=== PATIENT | male | born 1975 | race Caucasian/White ===

== ENCOUNTER 2020-10-24 15:02 | Outpatient (REF) | payer OTHER, SELFPAY | END 2020-10-24 15:03 | disposition home or self-care (01) | LOC: HO.HMGCLDS 15:02 | PROVIDERS: PCP Family Medicine; Visit Provider Family Medicine | DX: Z13.89 Encounter for screening for other disorder (principal) ==

== ENCOUNTER 2020-10-25 12:24 | Outpatient (REF) | payer OTHER, SELFPAY ==
[2020-10-26 09:07] LABS: ~Hepatitis B Surface Antibody NONREACTIVE (Nonreactive)
== END 2020-10-25 12:25 | disposition home or self-care (01) ==
LOC: HO.HMGCLDS 12:24
PROVIDERS: PCP Family Medicine; Visit Provider Family Medicine
DX: Z01.84 Encounter for antibody response examination (principal)
CPT/HCPCS: 36415; 86706

== ENCOUNTER 2020-11-25 11:54 | Outpatient (REF) | payer OTHER, SELFPAY ==
[2020-11-28 03:37] LABS: HBS Num1 0.52 mIU/mL (0-7.99); ~Hepatitis B Surface Antibody NONREACTIVE (Nonreactive)
== END 2020-11-25 11:55 | disposition home or self-care (01) ==
LOC: HO.HMGCLDS 11:54
PROVIDERS: PCP Family Medicine; Visit Provider Family Medicine
DX: Z01.84 Encounter for antibody response examination (principal)
CPT/HCPCS: 36415; 86706

== ENCOUNTER 2020-12-21 13:50 | Outpatient (REF) | payer OTHER, SELFPAY ==
[2020-12-22 09:32] LABS: ~Hepatitis B Surface Antibody NONREACTIVE (Nonreactive)
== END 2020-12-21 13:51 | disposition home or self-care (01) ==
LOC: HO.HMGCLDS 13:50
PROVIDERS: PCP Family Medicine; Visit Provider Family Medicine
DX: Z01.84 Encounter for antibody response examination (principal)
CPT/HCPCS: 36415; 86706

== ENCOUNTER 2021-02-09 09:42 | Outpatient (REF) | payer OTHER, SELFPAY ==
[2021-02-09 12:13] LABS: HIV AB/AG Nonreactive (Nonreactive); HIV Num 1 0.06 S/CO (0.00-0.99)
[2021-02-09 12:16] LABS: HBsAGNum1 0.24 S/CO (0.00-0.99); Hepatitis B Surface Antigen Negative (Negative)
[2021-02-09 12:27] LABS: Anion Gap 13 (12-20); Blood Urea Nitrogen 10 mg/dL (9-16); Calcium 8.9 mg/dL (8.4-10.2); Carbon Dioxide 29 mmol/L (22-29); Chloride 103 mmol/L (96-108); Cholesterol 190 mg/dL; Estimated Glomerular Filt Rate > 60; Glucose Random 89 mg/dL (60-115); HDL Cholesterol 33 mg/dL; LDL Cholesterol Calculated 98 mg/dl; Potassium 4.5 mmol/L (3.3-5.1); Sodium 140 mmol/L (135-145); Triglycerides 298 mg/dL
[2021-02-09 13:25] LABS: CT PCR NOT DETECTED (Not Detect.); NG PCR NOT DETECTED (Not Detect.)
[2021-02-10 03:58] LABS: Syphilis Screen Nonreactive (Nonreactive)
[2021-02-11 20:21] LABS: TS Negative Control Passed; TS Panel A 0; TS Panel B 0; TS Positive Control Passed; TSpotTB Negative (SeeBelow)
== END 2021-02-09 09:43 | disposition home or self-care (01) ==
LOC: HO.HMGCLDS 09:42
PROVIDERS: PCP Family Medicine; Visit Provider Family Medicine
DX: Z00.00 Encounter for general adult medical examination without abnormal findings (principal); Z11.1 Encounter for screening for respiratory tuberculosis; Z11.4 Encounter for screening for human immunodeficiency virus [HIV]; Z11.3 Encounter for screening for infections with a predominantly sexual mode of transmission
CPT/HCPCS: 80048; 80061; 86481; 86780; 87340; 87389; 87491; 87591

== ENCOUNTER 2021-06-27 12:53 | Outpatient (REF) | payer OTHER, SELFPAY ==
[2021-06-28 08:19] LABS: HBS Num1 0.45 mIU/mL (0-7.99); ~Hepatitis B Surface Antibody NONREACTIVE (Nonreactive)
== END 2021-06-27 12:54 | disposition home or self-care (01) ==
LOC: HO.HMGCLDS 12:53
PROVIDERS: PCP Family Medicine; Visit Provider Family Medicine
DX: Z92.29 Personal history of other drug therapy (principal)
CPT/HCPCS: 36415; 86706

== ENCOUNTER 2023-02-01 11:09 | Outpatient (REF) | payer OTHER, SELFPAY ==
[2023-02-01 14:17] LABS: Anion Gap 12 (12-20); Blood Urea Nitrogen 11 mg/dL (9-16); Carbon Dioxide 29 mmol/L (22-29); Chloride 103 mmol/L (96-108); Cholesterol 179 mg/dL; Estimated Glomerular Filt Rate > 60; Glucose Random 100 mg/dL (60-115); HDL Cholesterol 37 mg/dL; LDL Cholesterol Calculated 109 mg/dl; Potassium 4.1 mmol/L (3.3-5.1); Sodium 140 mmol/L (135-145); Triglycerides 165 mg/dL
[2023-02-01 14:39] LABS: Syphilis Screen Nonreactive (Nonreactive)
[2023-02-01 15:42] LABS: CT PCR NOT DETECTED (Not Detect.); NG PCR NOT DETECTED (Not Detect.)
[2023-02-04 08:53] LABS: HBsAGNum1 0.36 S/CO (0.00-0.99); HIV AB/AG Nonreactive (Nonreactive); HIV Num 1 0.08 S/CO (0.00-0.99); Hepatitis B Surface Antigen Negative (Negative); ~HepC Num1 0.09 S/CO (0.00-0.79); ~Hepatitis C Antibody Nonreactive (Nonreactive)
== END 2023-02-01 11:10 | disposition home or self-care (01) ==
LOC: HO.HMGCLDS 11:09
PROVIDERS: PCP Family Medicine; Visit Provider Family Medicine
DX: Z11.4 Encounter for screening for human immunodeficiency virus [HIV] (principal); Z20.2 Contact with and (suspected) exposure to infections with a predominantly sexual mode of transmission; E66.01 Morbid (severe) obesity due to excess calories; Z68.36 Body mass index [BMI] 36.0-36.9, adult
CPT/HCPCS: 0353U; 80048; 80061; 86780; 86803; 87340; 87389

== ENCOUNTER 2024-07-17 14:40 | Outpatient (REF) | payer OTHER, SELFPAY ==
[2024-07-17 16:58] LABS: Alanine Aminotransferase 32 U/L (0-40); Albumin Level 4.4 g/dL (3.5-5.0); Alkaline Phosphatase 60 U/L (39-117); Anion Gap 10 (12-20); Aspartate Amino Transferase 23 U/L (5-37); Bilirubin Total 0.9 mg/dL (0.0-1.0); Blood Urea Nitrogen 12 mg/dL (9-16); Calcium 9.6 mg/dL (8.4-10.2); Carbon Dioxide 28 mmol/L (22-29); Chloride 104 mmol/L (96-108); Cholesterol 168 mg/dL (<200); Estimated Glomerular Filt Rate > 60; Glucose Random 88 mg/dL (60-115); HDL Cholesterol 34 mg/dL (>40); LDL Cholesterol Calculated 109 mg/dL (<100); Potassium 3.4 mmol/L (3.3-5.1); Sodium 139 mmol/L (135-145); Total Protein 7.1 g/dL (6.5-8.0); Triglycerides 128 mg/dL (<150)
[2024-07-17 17:07] LABS: Vitamin D 25-OH Total 70.6 ng/mL (>30)
[2024-07-17 18:35] LABS: CT PCR NOT DETECTED (Not Detect.); NG PCR NOT DETECTED (Not Detect.)
[2024-07-18 04:02] LABS: Syphilis Screen Nonreactive (Nonreactive)
[2024-07-18 04:29] LABS: HBsAGNum1 0.77 S/CO (0.00-0.99); HIV AB/AG Nonreactive (Nonreactive); HIV Num 1 0.05 S/CO (0.00-0.99); Hepatitis B Surface Antigen Negative (Negative); ~HepC Num1 0.06 S/CO (0.00-0.79); ~Hepatitis C Antibody Nonreactive (Nonreactive)
== END 2024-07-17 14:41 | disposition home or self-care (01) ==
LOC: HO.HMGCLDS 14:40
PROVIDERS: PCP Family Medicine; Visit Provider Family Medicine
DX: Z00.00 Encounter for general adult medical examination without abnormal findings (principal); E55.9 Vitamin D deficiency, unspecified; Z11.4 Encounter for screening for human immunodeficiency virus [HIV]
CPT/HCPCS: 80053; 80061; 82306; 86780; 86803; 87340; 87389; 87491; 87591

== ENCOUNTER 2025-06-05 09:41 | Outpatient (REF) | payer OTHER, SELFPAY ==
--- OUTSIDE RECORDS SUMMARY | 2025-06-05 09:43 | XMS_ITS | Clinical Summary ---
Author Organization [facility] Address [address] [place] [phone] Phone Care Team Providers Care Inventory Control Coordinator Name Role Phone Radha Call MD, MPH Primary Care Provid er Allergies Active Allergy Reactions Criticality Noted Date Comments Nsaids (Non-Steroidal Anti-I nflammatory Drug) 11/06/2019 Medications sertraline (ZOLOFT) 25 MG tablet Take 1 tablet (25 mg total) by mouth daily. 30 tablet 5 06/19/2024 Active mirtazapine (REMERON) 7.5 MG tabletIndicatio ns:Primary insomnia TAKE ONE (1) TABLET BY MOUTH EVERY NIGHT AT BEDTIME 90 tablet 08/28/2024 Active Multivits/Iron Fum/FA/D3/Lycop (MULTI FOR HIM ORAL) as directed Orally Active cyanocobalamin (VITAMIN B-12) 1,000 mcg/mL injection INJECT 1 ML (1 000 MCG TOTAL) INTO THE MUSCLE EVERY 7 DAYS. 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 He understands the risks associated with this and potential work exposures and is willing to take them. This is up to him Elevated cholesterol 11/28/2019 Assessment & Plan (11/28/2019 6:20 PM EST): Triglycerides and LDL above goal. Reviewed ways for improving cholesterol. Pt is going to restart fish oil. Recheck in 6 months. Obesity due to excess calories without serious c omorbidity 11/09/2019 Assessment & Plan (09/22/2022 6:23 AM EST): Has done well with weight loss. Cont regular exercise Primary insomnia 11/06/2019 Assessment & Plan (09/22/2022 6:24 AM EST): Discussed THC unknowns. Assessment & Plan (11/28/2019 6:20 PM EST): Currently doing well with remeron. Ok to try 15mg dose if needed. Assessment & Plan (11/09/2019 10:23 AM EST): Discussed options of doxalamine vs mirtazepine. Adi prefers to start with mirtazepine. Discussed dosing options and sedation effect with dosing. Cough variant asthma 11/06/2019 Overview (09/22/2022): had hospitalization years ago and acquired diagnosis, does not regularly need inhaler Assessment & Plan (09/22/2022 6:17 AM EST): Discussed pneumonia vaccine recommendation. He is amenable Assessment & Plan (11/09/2019 10:23 AM EST): Controlled Encounters Date Type Department Care Team Description 05/24/2025 Refill [facility] [address] [place] [address] Radha Call MD, MPH Medication Refill from Last 3 Months Immunizations Immunization Administration Dates Next Due COVID-19 (Pre-07/29) Moderna Vaccine, mRNA, PF 11/15/2020,10/21/2020 Hepatitis B Adult 06/08/2021, 1,11/11/2020,09/13,04/14/2020,03/17/2020,08/20/2019 ,07/23/2019 Influenza Quadrivalent MDCK Preservative Free IM 07/07/2020 Influenza Quadrivalent Prese rvative Free IM 07/23/2019,07/18/2018,07/03/2013 Influenza Quadrivalent w/ Pr eservative IM 07/12/2017 MMR 08/20/2019,07/23/2019 Pneumococcal conjugate PCV20 09/21/2022 Pneumococcal polysaccharide PPSV23 08/07/2012 Tdap 03/17/2020,06/08/2013 Family History Medical History Relation Comments Glaucoma Mother Heart disease Mother unknown cause Hypertension Mother Pulmonary embolism Mother related to im mobility Breast cancer Neg Hx Colon cancer Neg Hx Pancreatic cancer Neg Hx Prostate cancer Neg Hx Stroke Neg Hx Relation Status Comments Brother Alive half sibling- di fferent father Mother (Age 63) Sister Alive half sibling- di fferent father Social History Tobacco Use Types Packs/Day Years Used Date Smoking Tobacco: Never Smokeless Tobacco: Never Alcohol Use Standard Drinks/Week Comments Yes 0 (1 standard drink = 0.6 oz pur e alcohol) Child or Family Care Answer Date Record ed Do you have problems with on e of the following making it difficult for you to work, study, or receive health care? No 06/19/2024 Education Answer Date Recorded Are you interested in help w ith more adult education (for example, completing high school, GED, job training, learning the [place] language, technical skills, or developing parenting skills)? No 06/19/2024 Are you concerned about learning? Not on file 06/19/2024 No 06/19/2024 Yes 06/19/2024 Food Answer Date Recorded Within the past 6 months we worried whether our food would run out before we got money to buy more. Never True 06/19/2024 Within the past 6 months the food we bought just didn't last and we didn't have enough money to get more. Never True Residential Stability Answer Date Recor ded What is your housing situation today? I have efren sing 06/19/2024 How many times have you move d in the past 12 months? Zero (I did not move) 06/19/2024 Paying for Meds Answer Date Recorded Do you have trouble paying for medicines? No 06/19/2024 Paying Utility Bills Answer Date Record ed Do you have trouble paying your heating or elect ricity bill? No 06/19/2024 Transportation Answer Date Recorded Has the lack of transportati on kept you from medical appointments or from getting medications? No 06/19/2024 Digital Access Answer Date Recorded No 06/19/2024 Yes 06/19/2024 Do you have reliable internet access at home? Ye s 06/19/2024 Do you have a device (e.g., phone, tablet, computer) with a working camera? Yes 06/19/2024 Intimate Partner Violence Answer Date R ecorded Denied Basic Needs Not on file 06/19/2024 In the past 12 months have y ou been in a relationship with a person who hurts, threatens, or tries to control you? No 06/19/2024 Worried food would run out Not on file 06/19 In the past 12 months have y ou been in a relationship with a person who hurts, threatens, or tries to control you? No 06/19/2024 Sex and Gender Information Value Date Recorded Sex Assigned at Male 11/06/2019 1:41 PM EST Legal Sex Male 3:59 PM EST Gender Identity Male 11/06/2019 1:41 PM EST Sexual Orientation Straight 11/06/2019 1: 41 PM EST Last Filed Vital Signs Vital Sign Reading Time Taken Comments Blood Pressure 128/88 06/19/2024 10:48 AM EDT Pulse 87 06/19/2024 10:48 AM EDT Temperature 36.6 C (97.9 F) 09/21/2022 1:05 PM EST Respiratory Rate - - Oxygen Saturation 99% 06/19/2024 10:48 AM EDT Inhaled Oxygen Concentration - - Weight 127.9 kg (282 lb) 06/19/2024 10:48 AM EDT Height 179.1 cm (5' 10.5 ) 06/19/2024 10:48 AM E DT Body Mass Index 39.89 06/19/2024 10:48 AM EDT Plan of Treatment Health Maintenance Due Date Last Done Comments COLOGUARD 2020 COLONOSCOPY 2020 COLORECTAL CANCER SCREENING 2020 FIT TEST 2020 FOBT 2020 SIGMOIDOSCOPY 2020 VIRTUAL COLONOSCOPY 2020 COVID-19 VACCINE ( season) 2024 11/15/2020, 10/21/2020 REPEAT PHQ 07/19/2024 06/19/2024, 06/19/2024 ZOSTER VACCINES (1 of 2) 2025 INFLUENZA VACCINE (#1) 2025 , 07/23/2019, 07/18/2018, Additional history exists DEPRESSION SCREENING 06/19/2025 06/19/2024, 06/19/20 24 SCREENING FOR DIABETES 07/17/2027 07/17/2024 LIPID PANEL 07/17/2029 07/17/2024, 07/07, 07/17/2024 Adult Td,Tdap Booster 03/17/2030 03/17/2020, 013 PNEUMOCOCCAL VACCINES (50+ years) Completed 09/21/2022, 08/07/2012 HEPATITIS C SCREENING Completed 07/17/2024 , 07/17/2024, 09/21/2022, Additional history exists HIV ONE-TIME SCREENING (18-65 YEARS) Completed 07/17/2024 SMOKING STATUS SCREENING (Once After 26 Yrs) Completed 08/26/2024 HEPATITIS A VACCINES Aged Out No long er eligible based on patient's age to complete this topic HIB VACCINES Aged Out No longer eligi ble based on patient's age to complete this topic MENINGOCOCCAL VACCINES (ACWY) Aged Out No longer eligible based on patient's age to complete this topic MENINGOCOCCAL VACCINES (B) Aged Out N o longer eligible based on patient's age to complete this topic Medical Devices Not on file Procedures Procedure Name Priority Date/Time Associated Diagnosis Comments HEPATITIS C ANTIBODY, QUALITATIVE Routine 07/17/2024 8:56 AM EDT Annual physical exam OUTSIDE HDL Routine 07/17/2024 OUTSIDE GLUCOSE FASTING Routine 07/17/2024 OUTSIDE HIV Routine 07/17/2024 from Last 3 Months or Most Recently Relevant to Health Maintenance Results * Hepatitis C antibody, qualitative (07/17/2024 8:56 AM EDT) Blood Radha Call MD, MPH LAB BLOOD ORDERABLES Final Result EXTERNAL NON-INTERFACED REF LAB * Outside Glucose,Fasting (07/17/2024) Glucose, fasting - External 88 65 - 99 mg/dL Historical Provider MD LAB BLOOD ORDERABLES Elvira l Result * OUTSIDE HIV TEST (07/17/2024) HIV - External Neg Historical Provider MD LAB BLOOD ORDERABLES Elvira l Result * (ABNORMAL) Outside HDL (07/17/2024) HDL - External 34(A) 40 - 80 mg/dL Historical Provider MD LAB BLOOD ORDERABLES Elvira l Result from Last 3 Months or Most Recently Relevant to Health Maintenance Insurance [place] [id number] [employer] Care Teams Inventory Control Coordinator Relationship Specialty Start Date End Date Radha Call MD, MPH [address] [place] [phone] [email or web address] PCP - General Family Medicine 10/30/19 Additional Source Comments The information contained in this document represents components of the legal health record. It is not the complete legal health record.[facility]
--- OUTSIDE RECORDS SUMMARY | 2025-06-05 09:44 | XMS_ITS | Encounter Summary ---
Author Organization [facility] Address [address] [place] [address] Phone Care Team Providers Care Restaurant Busser Name Role Phone Radha Call MD, MPH Primary Care Provid er Reason for Visit * Reason Comments Medication Refill Encounter Details Date Type Department Care Team (Late st Contact Info) Description 05/24/2025 Refill [facility] [address] [place] [address] Radha Call MD, MPH [address] [place], [place] [id number] [email or web address] Medication Refill Social History Tobacco Use Types Packs/Day Years [...] high school, GED, job training, learning the [place]og[place] language, technical skills, or developing parenting skills)? [...] your housing situation today? I have efren hinojosa 06/19/2024 How many times have you move [...] Orientation Straight 11/06/2019 1: 41 PM EST documented as of this encounter Progress Notes * Shelbie Fair RN - 05/24/2025 11:01 AM EDT At least one Rx below has no protocol and needs review. Rx Care Gap Status - Instructions for Clinical Staff (prescriber discretion applies): > Mismatch review guide > No future appt: Please schedule if appropriate. Visit Info Last visit: 08/26/2024 Radha Call MD, MPH - Primary Care [facility] PRIMARY OXBOW > Requested f/u: Not specified Upcoming visit: None ACTIONS TAKEN BY Shelbie Fair RN - Visit needed - Scheduled; sent msg to FD; and/or reminded pt. Rx(s) without protocol Renewal is at prescriber discretion. - cyanocobalamin (vitamin B-12) TO FD for appt scheduling documented in this encounter Plan of Treatment Not on file documented as of this encounter Visit Diagnoses Not on filedocumented in this encounter Additional Health Concerns Assessment Noted Time PHQ-9 Depression Total Score: 14 024 10:59 AM EDT PHQ-2 Depression Total Score: 3 06/19/20 24 10:59 AM EDT documented as of this encounter Care Teams Restaurant Busser Relationship Specialty Start Date End Date Radha Call MD, MPH [address] [place], [place] [phone] [email or web address] PCP - General Family Medicine 10/30/19 documented as of this encounter Additional Source Comments The information contained in this document represents components of the legal health record. It is not the complete legal health record.[facility]
[2025-06-05 10:06] LABS: MANUAL DIFF FLAG NO
[2025-06-05 11:02] LABS: Hematocrit 50.9 % (42.0-52.0); Hemoglobin 16.9 g/dl (14.0-18.0); Imm Gran Abs Auto 0.01 X10*3/uL (0.00-0.03); Imm Gran Pct Auto 0.2 % (0.0-0.4); Lymphocytes Absolute Auto 1.5 X10*3/uL (1.2-4.9); Mean Corpuscular HGB Conc 33.2 g/dl (31.0-36.0); Mean Corpuscular Hemoglobin 29.0 pg (27.0-33.0); Mean Corpuscular Volume 87.3 fL (80.0-98.0); NRBC Abs Auto 0.000 X10*3/uL (0.0-0.012); NRBC Pct Auto 0.0 /100WBC (0.0-0.2); Platelet Count 257 X10*3/uL (160-400); Red Blood Count 5.83 X10*6/uL (4.60-5.80); White Blood Count 6.5 X10*3/uL (4.8-10.8)
[2025-06-05 11:15] LABS: Hemoglobin A1C 135.4018 umol/L; Total Hemoglobin (HGBA1C) 4419.3808 umol/L
[2025-06-05 11:31] LABS: INTERNATIONAL NORM RATIO 0.9 (0.9-1.1); Partial Thromboplastin Time 35.8 SEC (26.7-34.1); Prothrombin Time 10.8 SEC (10.9-12.4)
[2025-06-05 11:32] LABS: Appearance Urine Clear; Glucose Urine UA Negative (Negative); PH 5.5 (5.0-9.0); Specific Gravity - Urine 1.020 (1.005-1.025); UMIC TRIGGER UACC YES
[2025-06-05 11:41] LABS: Alanine Aminotransferase 44 U/L (0-40); Albumin Level 4.6 g/dL (3.5-5.0); Alkaline Phosphatase 70 U/L (39-117); Anion Gap 13 (12-20); Aspartate Amino Transferase 31 U/L (5-37); Blood Urea Nitrogen 24 mg/dL (9-16); Calcium 9.2 mg/dL (8.4-10.2); Carbon Dioxide 29 mmol/L (22-29); Chloride 104 mmol/L (96-108); Cholesterol 104 mg/dL (<200); Estimated Glomerular Filt Rate > 60; HDL Cholesterol 40 mg/dL (>40); Potassium 4.4 mmol/L (3.3-5.1); Sodium 142 mmol/L (135-145); Total Protein 7.1 g/dL (6.5-8.0); Triglycerides 55 mg/dL (<150)
[2025-06-05 11:53] LABS: HIV Num 1 0.07 S/CO (0.00-0.99)
[2025-06-05 11:54] LABS: Syphilis Screen Nonreactive (Nonreactive)
[2025-06-05 11:55] LABS: Free T4 (Free Thyroxine) 1.03 ng/dL (0.71-1.85); Thyroid Stimulating Hormone 1.37 uIU/mL (0.32-4.0)
[2025-06-05 15:10] LABS: CT PCR Urine NOT DETECTED (Not Detect.); NG PCR Urine NOT DETECTED (Not Detect.)
== END 2025-06-05 09:42 | disposition home or self-care (01) ==
LOC: HO.LAB 09:41
DX: Z00.00 Encounter for general adult medical examination without abnormal findings (principal); E55.9 Vitamin D deficiency, unspecified; Z11.3 Encounter for screening for infections with a predominantly sexual mode of transmission; Z11.8 Encounter for screening for other infectious and parasitic diseases; Z13.29 Encounter for screening for other suspected endocrine disorder; Z13.220 Encounter for screening for lipoid disorders; Z13.1 Encounter for screening for diabetes mellitus; Z79.1 Long term (current) use of non-steroidal anti-inflammatories (NSAID)
CPT/HCPCS: 36415; 80053; 80061; 81001; 82306; 83036; 84436; 84439; 84443; 84480; 84481; 85025; 85610; 85730; 86695; 86696; 86780; 87389; 87491; 87591

== ENCOUNTER 2025-06-08 09:44 | Outpatient (REF) | payer OTHER, SELFPAY ==
--- OUTSIDE RECORDS SUMMARY | 2024-09-02 04:45 | XMS_ITS ---
Author Organization [facility] [address] Address [address] [facility] [place] [address] Care Team Providers Care Credit Verifier Name Role Phone KATHLEEN CANNON Unavailable [phone] BETITO FRAZIER Unavailable [phone] REASON FOR VISIT 5mg Encounters Encounter Location Date Provider Diagnosis [facility] [address] [place] [address] 09/02/2024 BETITO FRAZIER Plan Of Treatment Next Appt Details Provider Name:KATHLEEN CANNON, 07/16/2025 10:45:00 AM, [address], [place], [address], Progress Notes * Adi MOTADOB:[birth year] (50 yo M)Acc No.[id number]:09/02/2024 Patient: Adi BROOKS Provider: Laurel Frazier MD :1975 A ge:49 Y S ex:Male Date:09/02/2024 Address:[address] [id number] Subjective: * Chief Complaints: * 1 . 5mg. * Medical History: Objective: * Vitals: Assessment: Plan: * Treatment: * Images: Billing Information: * Visit Code: * Procedure Codes: * Electronic signature of KATI FRAZIER MD on 06/08/2025 at 10:51 AM EDT Sign off status: Pending * Provider: Laurel Frazier MD Date: 11/02/2023 Generated for Elina Nayakg/Annieitting on: 0 06/08/2025 10:51 AM EDT
--- OUTSIDE RECORDS SUMMARY | 2024-09-09 04:15 | XMS_ITS ---
Author Organization [facility] [address] Address [address] [facility] [place] [address] Care Team Providers Care Counter Help Name Role Phone KATHLEEN CANNON Unavailable [phone] BETITO FRAZIER Unavailable [phone] REASON FOR VISIT 5mg Encounters Encounter Location Date Provider Diagnosis [facility] [address] [place] [address] 09/09/2024 BETITO FRAZIER Plan Of Treatment Next Appt Details Provider Name:KATHLEEN CANNON, 07/16/2025 10:45:00 AM, [address], [place], [address], Progress Notes * Adi MOTADOB:[birth year] (50 yo M)Acc No.[id number]:09/09/2024 Patient: Adi BROOKS Provider: Laurel Frazier MD :1975 A ge:49 Y S ex:Male Date:09/09/2024 Address:[address] [id number] Subjective: * Chief Complaints: * 1 . 5mg. * Medical History: Objective: * Vitals: Assessment: Plan: * Treatment: * Images: Billing Information: * Visit Code: * Procedure Codes: * Electronic signature of KATI FRAZIER MD on 06/08/2025 at 10:51 AM EDT Sign off status: Pending * Provider: Laurel Frazier MD Date: 11/10/2023 Generated for Elina Nayakg/Annieitting on: 0 06/08/2025 10:51 AM EDT
--- OUTSIDE RECORDS SUMMARY | 2024-09-15 09:30 | XMS_ITS ---
Author Organization [facility] [address] Address [address] [facility] [place] [address] Care Team Providers Care Firearms Expert Name Role Phone KATHLEEN CANNON Unavailable [phone] Encounters Encounter Location Date Provider Diagnosis [facility] [address] [place] [address] 09/15/2024 KATHLEEN CANNON Plan Of Treatment Next Appt Details Provider Name:KATHLEEN CANNON, 07/16/2025 10:45:00 AM, [address], [place], [address], Progress Notes * Adi MOTADOB:[birth year] (50 yo M)Acc No.[id number]:09/15/2024 Patient: Adi BROOKS Provider: Chi CANNON PA-C :1975 A ge:49 Y S ex:Male Date:09/15/2024 Address:[address] [place] Subjective: * Chief Complaints: * * Medical History: Objective: * Vitals: Assessment: Plan: * Treatment: * Images: Billing Information: * Visit Code: * Procedure Codes: * Electronic signature of ANNA MARIE CANNON PA-C [id number] on 06/08/2025 at 10:50 AM EDT Sign off status: Pending * Provider: Chi CANNON PA-C Date: 1 11/16/2023 Generated for Elina ac/Faxing/eTransmitting on: 0 06/08/2025 10:50 AM EDT
--- OUTSIDE RECORDS SUMMARY | 2025-06-04 06:45 | XMS_ITS ---
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 Teacher Name Role Phone KATHLEEN CANNON Unavailable [phone] Allergies Allergen (clinical drug ingredient) Drug/Non Drug Allergy documented on EMR Reaction Allergy Type Onset Date Status Non-steroidal anti-inflammatory agent (FN) NSAIDs stomach upset Drug Allergy Active REASON FOR VISIT pt is here for inpatient services rn visit no concerns Medications Medication SIG (Take, Route, Fr equency, Duration) Notes Start Date End Date Status Multi For Him - as directed Orally Active Vitamin D3 Active Mirtazapine 15 MG 1 tablet at bedtime Orally Once a day Active Social History Tobacco Use: Social History Observation Description Date Details (start date - stop date) Never Smoker NA - NA Tobacco Use/Smoking Question Answer Notes Are you a nonsmoker Section Notes: Ocassional alcohol consumption Rare marijuana edible use for sleep Problems Problem Type SNOMED Code ICD Code Onset Dates Problem Status W/U Status Risk Notes Problem Essential hypertension (14680397) Essential hypertension (I10) Active confirmed Problem Chronic insomnia (532679037) Chronic insomnia (F51.04) Active confirmed Problem Abnormal blood pressure (49480068) Encounter for examination of blood pressure with abnormal findings (Z01.31) Active confirmed Vital Signs Blood pressure systolic 140 mm Hg 06/04/20 25 Blood pressure diastolic 88 mm Hg 025 Heart Rate 87 /min 06/04/2025 Height 70 in 06/04/2025 Weight 186.6 lbs 06/04/2025 BMI 26.77 kg/m2 06/04/2025 Oximetry 98 % 06/04/2025 Encounters Encounter Location Date Provider Diagnosis [facility] [address] [place] [address] 06/04/2025 KATHLEEN CANNON BMI 26.0-26.9,adult Z68.26 ; Essential hypertension I10 ; Seasonal allergies J30.2 ; History of pneumonia Z87.01 ; Chronic insomnia F51.04 ; Risk for sexually transmitted disease Z72.51 and Encounter for examination of blood pressure with abnormal findings Z01.31 Assessments Encounter Date Diagnosis (ICD Code) Assessment Notes Treatment Notes Treatment Clinical Notes Section Notes 06/04/2025 BMI 26.0-26.9,adult (ICD-10 - Z68.26) Adi is a pleasant 50-year-old male present today to establish care as a new patient. # Recommend calling last primary care to transfer records. # Wt: 186.6 lbs, BMI: 26.77 recently seen in office for weight management. Previously on Zepbound in office however discontinued weight management visits as he had them begun purchasing Zepbound online. States he has made drastic lifestyle modifications in his life including diet and exercise to have such successful weight loss. Reached Zepbound 10 mg until hitting goal weight. Has since discontinued as he has upcoming cosmetic abdominoplasty that will be performed in [place]. # Hypertension: Blood pressure elevated in office today 140/80. Patient monitors blood pressure at home and able to review log which reveals systolic blood pressure readings of 110-120s and diastolics 70-80s. Will continue to monitor. #Seasonal allergies: Well-controlled. Continue avon-uko-bxhvjpk antihistamines as needed. #History of pneumonia: Over 10+ years ago. #Chronic insomnia: Reports family history of insomnia. This is chronic for himself as well. Currently on mirtazapine 15 mg p.o. once daily. Previously has tried a variety of other sleep aids including Ambien and zopiclone. Has also been prescribed lorazepam in the past. States that zopiclone works the best for sleep taking at a low dose. Will further discuss at following visit. Will consider sleep study. # Sexual activity: Continue annual STD testing and encouraged safe sex practice. If symptoms develop, will consider sooner screening. # Preop visit scheduled for 06/08 for upcoming abdominoplasty in [place], [place]. Will order bloodwork today required for surgery as well as perform an EKG at preop. Patient will return with needed paperwork for preop clearance. # 4 weeks for CPE. All questions answered to patients satisfaction. Patient verbalized understanding of diagnosis and treatments explained. To call sooner prior to next visit it any questions/concerns arise. Case discussed with collaborating physician Dr. Frazier who reviewed the assessment and plan. Chart, medications, labs, vital signs reviewed. Dictation was accomplished with the use of [employer] voice recognition software, prone to medical misidentifications and grammatical errors. This is unintentional and the practitioner does try to identify and correct these, but some could still be present. Please do not hesitate to contact practitioner for clarification. 06/04/2025 Essential hypertension (ICD-10 - I10) Adi is a pleasant 50-year-old male present today to establish care as a new patient. # Recommend calling last primary care to transfer records. # Wt: 186.6 lbs, BMI: 26.77 recently seen in office for weight management. Previously on Zepbound in office however discontinued weight management visits as he had them begun purchasing Zepbound online. States he has made drastic lifestyle modifications in his life including diet and exercise to have such successful weight loss. Reached Zepbound 10 mg until hitting goal weight. Has since discontinued as he has upcoming cosmetic abdominoplasty that will be performed in [place]. # Hypertension: Blood pressure elevated in office today 140/80. Patient monitors blood pressure at home and able to review log which reveals systolic blood pressure readings of 110-120s and diastolics 70-80s. Will continue to monitor. #Seasonal allergies: Well-controlled. Continue hmsh-jje-yasutky antihistamines as needed. #History of pneumonia: Over 10+ years ago. #Chronic insomnia: Reports family history of insomnia. This is chronic for himself as well. Currently on mirtazapine 15 mg p.o. once daily. Previously has tried a variety of other sleep aids including Ambien and zopiclone. Has also been prescribed lorazepam in the past. States that zopiclone works the best for sleep taking at a low dose. Will further discuss at following visit. Will consider sleep study. # Sexual activity: Continue annual STD testing and encouraged safe sex practice. If symptoms develop, will consider sooner screening. # Preop visit scheduled for 06/08 for upcoming abdominoplasty in [place], [place]. Will order bloodwork today required for surgery as well as perform an EKG at preop. Patient will return with needed paperwork for preop clearance. # 4 weeks for CPE. All questions answered to patients satisfaction. Patient verbalized understanding of diagnosis and treatments explained. To call sooner prior to next visit it any questions/concerns arise. Case discussed with collaborating physician Dr. Frazier who reviewed the assessment and plan. Chart, medications, labs, vital signs reviewed. Dictation was accomplished with the use of [employer] voice recognition software, prone to medical misidentifications and grammatical errors. This is unintentional and the practitioner does try to identify and correct these, but some could still be present. Please do not hesitate to contact practitioner for clarification. 06/04/2025 Seasonal allergies (ICD-10 - J30.2) Adi is a pleasant 50-year-old male present today to establish care as a new patient. # Recommend calling last primary care to transfer records. # Wt: 186.6 lbs, BMI: 26.77 recently seen in office for weight management. Previously on Zepbound in office however discontinued weight management visits as he had them begun purchasing Zepbound online. States he has made drastic lifestyle modifications in his life including diet and exercise to have such successful weight loss. Reached Zepbound 10 mg until hitting goal weight. Has since discontinued as he has upcoming cosmetic abdominoplasty that will be performed in [place]. # Hypertension: Blood pressure elevated in office today 140/80. Patient monitors blood pressure at home and able to review log which reveals systolic blood pressure readings of 110-120s and diastolics 70-80s. Will continue to monitor. #Seasonal allergies: Well-controlled. Continue ovgo-bdf-bretgny antihistamines as needed. #History of pneumonia: Over 10+ years ago. #Chronic insomnia: Reports family history of insomnia. This is chronic for himself as well. Currently on mirtazapine 15 mg p.o. once daily. Previously has tried a variety of other sleep aids including Ambien and zopiclone. Has also been prescribed lorazepam in the past. States that zopiclone works the best for sleep taking at a low dose. Will further discuss at following visit. Will consider sleep study. # Sexual activity: Continue annual STD testing and encouraged safe sex practice. If symptoms develop, will consider sooner screening. # Preop visit scheduled for 06/08 for upcoming abdominoplasty in [place], [place]. Will order bloodwork today required for surgery as well as perform an EKG at preop. Patient will return with needed paperwork for preop clearance. # 4 weeks for CPE. All questions answered to patients satisfaction. Patient verbalized understanding of diagnosis and treatments explained. To call sooner prior to next visit it any questions/concerns arise. Case discussed with collaborating physician Dr. Frazier who reviewed the assessment and plan. Chart, medications, labs, vital signs reviewed. Dictation was accomplished with the use of [employer] voice recognition software, prone to medical misidentifications and grammatical errors. This is unintentional and the practitioner does try to identify and correct these, but some could still be present. Please do not hesitate to contact practitioner for clarification. 06/04/2025 History of pneumonia (ICD-10 - Z87.01) Adi is a pleasant 50-year-old male present today to establish care as a new patient. # Recommend calling last primary care to transfer records. # Wt: 186.6 lbs, BMI: 26.77 recently seen in office for weight management. Previously on Zepbound in office however discontinued weight management visits as he had them begun purchasing Zepbound online. States he has made drastic lifestyle modifications in his life including diet and exercise to have such successful weight loss. Reached Zepbound 10 mg until hitting goal weight. Has since discontinued as he has upcoming cosmetic abdominoplasty that will be performed in [place]. # Hypertension: Blood pressure elevated in office today 140/80. Patient monitors blood pressure at home and able to review log which reveals systolic blood pressure readings of 110-120s and diastolics 70-80s. Will continue to monitor. #Seasonal allergies: Well-controlled. Continue ttpm-rhm-jkthgsg antihistamines as needed. #History of pneumonia: Over 10+ years ago. #Chronic insomnia: Reports family history of insomnia. This is chronic for himself as well. Currently on mirtazapine 15 mg p.o. once daily. Previously has tried a variety of other sleep aids including Ambien and zopiclone. Has also been prescribed lorazepam in the past. States that zopiclone works the best for sleep taking at a low dose. Will further discuss at following visit. Will consider sleep study. # Sexual activity: Continue annual STD testing and encouraged safe sex practice. If symptoms develop, will consider sooner screening. # Preop visit scheduled for 06/08 for upcoming abdominoplasty in [place], [place]. Will order bloodwork today required for surgery as well as perform an EKG at preop. Patient will return with needed paperwork for preop clearance. # 4 weeks for CPE. All questions answered to patients satisfaction. Patient verbalized understanding of diagnosis and treatments explained. To call sooner prior to next visit it any questions/concerns arise. Case discussed with collaborating physician Dr. Frazier who reviewed the assessment and plan. Chart, medications, labs, vital signs reviewed. Dictation was accomplished with the use of [employer] voice recognition software, prone to medical misidentifications and grammatical errors. This is unintentional and the practitioner does try to identify and correct these, but some could still be present. Please do not hesitate to contact practitioner for clarification. 06/04/2025 Chronic insomnia (ICD-10 - F51.04) Adi is a pleasant 50-year-old male present today to establish care as a new patient. # Recommend calling last primary care to transfer records. # Wt: 186.6 lbs, BMI: 26.77 recently seen in office for weight management. Previously on Zepbound in office however discontinued weight management visits as he had them begun purchasing Zepbound online. States he has made drastic lifestyle modifications in his life including diet and exercise to have such successful weight loss. Reached Zepbound 10 mg until hitting goal weight. Has since discontinued as he has upcoming cosmetic abdominoplasty that will be performed in [place]. # Hypertension: Blood pressure elevated in office today 140/80. Patient monitors blood pressure at home and able to review log which reveals systolic blood pressure readings of 110-120s and diastolics 70-80s. Will continue to monitor. #Seasonal allergies: Well-controlled. Continue xlvt-ktb-wpbdlbr antihistamines as needed. #History of pneumonia: Over 10+ years ago. #Chronic insomnia: Reports family history of insomnia. This is chronic for himself as well. Currently on mirtazapine 15 mg p.o. once daily. Previously has tried a variety of other sleep aids including Ambien and zopiclone. Has also been prescribed lorazepam in the past. States that zopiclone works the best for sleep taking at a low dose. Will further discuss at following visit. Will consider sleep study. # Sexual activity: Continue annual STD testing and encouraged safe sex practice. If symptoms develop, will consider sooner screening. # Preop visit scheduled for 06/08 for upcoming abdominoplasty in [place]. Will order bloodwork today required for surgery as well as perform an EKG at preop. Patient will return with needed paperwork for preop clearance. # 4 weeks for CPE. All questions answered to patients satisfaction. Patient verbalized understanding of diagnosis and treatments explained. To call sooner prior to next visit it any questions/concerns arise. Case discussed with collaborating physician Dr. Frazier who reviewed the assessment and plan. Chart, medications, labs, vital signs reviewed. Dictation was accomplished with the use of [employer] voice recognition software, prone to medical misidentifications and grammatical errors. This is unintentional and the practitioner does try to identify and correct these, but some could still be present. Please do not hesitate to contact practitioner for clarification. 06/04/2025 Risk for sexually transmitted disease (ICD-10 - Z72.51) Adi is a pleasant 50-year-old male present today to establish care as a new patient. # Recommend calling last primary care to transfer records. # Wt: 186.6 lbs, BMI: 26.77 recently seen in office for weight management. Previously on Zepbound in office however discontinued weight management visits as he had them begun purchasing Zepbound online. States he has made drastic lifestyle modifications in his life including diet and exercise to have such successful weight loss. Reached Zepbound 10 mg until hitting goal weight. Has since discontinued as he has upcoming cosmetic abdominoplasty that will be performed in [place]. # Hypertension: Blood pressure elevated in office today 140/80. Patient monitors blood pressure at home and able to review log which reveals systolic blood pressure readings of 110-120s and diastolics 70-80s. Will continue to monitor. #Seasonal allergies: Well-controlled. Continue xldm-hks-yyhkmtk antihistamines as needed. #History of pneumonia: Over 10+ years ago. #Chronic insomnia: Reports family history of insomnia. This is chronic for himself as well. Currently on mirtazapine 15 mg p.o. once daily. Previously has tried a variety of other sleep aids including Ambien and zopiclone. Has also been prescribed lorazepam in the past. States that zopiclone works the best for sleep taking at a low dose. Will further discuss at following visit. Will consider sleep study. # Sexual activity: Continue annual STD testing and encouraged safe sex practice. If symptoms develop, will consider sooner screening. # Preop visit scheduled for 06/08 for upcoming abdominoplasty in [place]. Will order bloodwork today required for surgery as well as perform an EKG at preop. Patient will return with needed paperwork for preop clearance. # 4 weeks for CPE. All questions answered to patients satisfaction. Patient verbalized understanding of diagnosis and treatments explained. To call sooner prior to next visit it any questions/concerns arise. Case discussed with collaborating physician Dr. Frazier who reviewed the assessment and plan. Chart, medications, labs, vital signs reviewed. Dictation was accomplished with the use of [employer] voice recognition software, prone to medical misidentifications and grammatical errors. This is unintentional and the practitioner does try to identify and correct these, but some could still be present. Please do not hesitate to contact practitioner for clarification. 06/04/2025 Encounter for examination of blood pressure with abnormal findings (ICD-10 - Z01.31) Adi is a pleasant 50-year-old male present today to establish care as a new patient. # Recommend calling last primary care to transfer records. # Wt: 186.6 lbs, BMI: 26.77 recently seen in office for weight management. Previously on Zepbound in office however discontinued weight management visits as he had them begun purchasing Zepbound online. States he has made drastic lifestyle modifications in his life including diet and exercise to have such successful weight loss. Reached Zepbound 10 mg until hitting goal weight. Has since discontinued as he has upcoming cosmetic abdominoplasty that will be performed in [place]. # Hypertension: Blood pressure elevated in office today 140/80. Patient monitors blood pressure at home and able to review log which reveals systolic blood pressure readings of 110-120s and diastolics 70-80s. Will continue to monitor. #Seasonal allergies: Well-controlled. Continue bfbl-mny-ktowyre antihistamines as needed. #History of pneumonia: Over 10+ years ago. #Chronic insomnia: Reports family history of insomnia. This is chronic for himself as well. Currently on mirtazapine 15 mg p.o. once daily. Previously has tried a variety of other sleep aids including Ambien and zopiclone. Has also been prescribed lorazepam in the past. States that zopiclone works the best for sleep taking at a low dose. Will further discuss at following visit. Will consider sleep study. # Sexual activity: Continue annual STD testing and encouraged safe sex practice. If symptoms develop, will consider sooner screening. # Preop visit scheduled for 06/08 for upcoming abdominoplasty in [place]. Will order bloodwork today required for surgery as well as perform an EKG at preop. Patient will return with needed paperwork for preop clearance. # 4 weeks for CPE. All questions answered to patients satisfaction. Patient verbalized understanding of diagnosis and treatments explained. To call sooner prior to next visit it any questions/concerns arise. Case discussed with collaborating physician Dr. Frazier who reviewed the assessment and plan. Chart, medications, labs, vital signs reviewed. Dictation was accomplished with the use of [employer] voice recognition software, prone to medical misidentifications and grammatical errors. This is unintentional and the practitioner does try to identify and correct these, but some could still be present. Please do not hesitate to contact practitioner for clarification. Plan Of Treatment Pending Test Test Name Order Date APTT 06/04/2025 SYPHILIS TESTING 06/04/2025 HIV 1 & 2 Ab 06/04/2025 PT/INR 06/04/2025 LIPID PANEL, STANDARD 06/04/2025 COMPREHENSIVE METABOLIC PANEL 06/04/2025 CBC (INCLUDES DIFF/PLT) 06/04/2025 URINALYSIS, COMPLETE 06/04/2025 HEMOGLOBIN A1c 06/04/2025 VITAMIN D,25-OH,TOTAL,IA 06/04/2025 CHLAMYDIA/N. GONORRHOEAE RNA, TMA, UROGE NITAL 06/04/2025 HSV 1 and 2 Ab, [id number] 06/04/2025 TSH+T3+Free T4+T3 Free 06/04/2025 Next Appt Details Provider Name:KATHLEENLAM CANNON, 07/16/2025 10:45:00 AM, [address], [place], [address], Progress Notes * Adi MOTADOB:[birth year] (50 yo M)Acc No.[id number]:06/04/2025 Progress Notes Patient: Adi BROOKS Provider: Chi CANNON PA-C :1975 A ge:50 Y S ex:Male Date:06/04/2025 Address:[address] [place], [place] [id number] Subjective: * Chief Complaints: * 1 . Pt is here for inpatient services rn visit no concerns. * HPI: C onstitutional: Adi is a 50-year-old male present today to establish care?as a new patient. Seen today with in room. Previously seen in office for weight management. New patient paperwork reviewed. Medical, surgical social family history reviewed. Patient previously seen at [facility] for primary care. Last CPE was March 2024. Has routine dental and ophthalmology care. Immunizations- Forms: Up-to-date COVID: Vaccine x 2 Shingles: History of shingles 10+ years ago. Interested in vaccine Tetanus: Up-to-date Screening- Colonoscopy: Not up-to-date, will order today Patient reports history of occasional alcohol consumption, 2 drinks a month. Reports occasional edible for sleep. Denies any other drug use. Patient lives with . 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 Patient reports history of chronic insomnia. Only on mirtazapine however has tried a variety of sleep aids in the past including Ambien and zopiclone. States zoplicone has helped the best. Patient discloses that he and his are involved in the [employer] community. Requesting annual STD testing. Patient had previously had a long-term girlfriend of 7 years however this ended about a year ago. Has preop visit scheduled for 06/08 for cosmetic abdominoplasty that will be performed in [place]. * ROS: C onstitutional: Patient denies any excessive fatigue with exercise, no weight loss, no fever, no night sweats, no changes in sleep. Eyes: No eye discharge, no itching, no redness, no vision changes. Advised the significance of regular eye exams to screen for glaucoma and other eye problems. Ear nose throat: No ear pain, No sore throat, no postnasal drip, no runny nose, no sneezing, no hearing changes Cardiovascular: No chest pain, no dyspnea on exertion, no PND, no orthopnea, no irregular pulse, no palpitations, no claudication, no diaphoresis, no claudication. Respiratory: No chronic cough, no hemoptysis, no sputum, no wheezing, no SOB, no pleuritic pain. GI, No diarrhea, no constipation, no blood in the stools, no pain associated with eating, no indigestion, no difficulty swallowing, no appetite change. Genitourinary: No painful urination, no hesitancy, no blood in the urine, no incontinence, no frequency, no urgency, no abnormal discharge. Musculoskeletal: No back pain, no joint pain, no limitations to walking and running, no joint deformity, no joint stiffness, no muscle weakness Integumentary: No new skin rash. No new changes in skin moles, no pruritis, no color change. Neurological: No history of seizures, no memory loss, no language dysfunction, no inability to concentrate, no localized weakness, no sensation loss, no confusion, no dizziness, no tremor, no numbness, no tingling. Psychiatric: no anxiety, no depression, no suicidal thoughts, feels safe at home. Endocrine: No polyuria, no polyphagia, no polydipsia. No heat/cold intolerance, no excesss thirst.? Hematological: No easy bruising or bleeding, no lymph node swelling. * Medical History: P neumonia, Essential (primary) hypertension, Seasonal allergies, Morbid (severe) obesity due to excess calories, Chronic insomnia. * Surgical History: L ap Band 2012. * Hospitalization/Major Diagno stic Procedure: D enies Past Hospitalization. * Family History: F ather: unknown. M other: 62 yrs. 1 brother(s) , 1 sister(s) . 1 son(s) . .? fam history of heart disease and hypertension 1 child. * Social History: T obacco Use: T obacco Use/Smoking A re you a n onsmoker. O cassional alcohol consumption Rare marijuana edible use for sleep. * Medications: T aking Vitamin D3 , Taking Multi For Him - Tablet as directed Orally , Taking Mirtazapine 15 MG Tablet 1 tablet at bedtime Orally Once a day , Discontinued Zepbound 5 MG/0.5ML Solution Auto-injector 0.5 mL Subcutaneous once weekly , Medication List reviewed and reconciled with the patient * Allergies: N SAIDs: stomach upset. Objective: * Vitals: H R:87/min, BP:140/88mm Hg, Wt:186.6lbs, BMI:26.77Index, Ht: 70 in, Oxygen sat %:98%. * Physical Examination: Ted eneral: Age appropriate male, well appearing, no acute distress, speaking in full sentences without respiratory compromise. Well groomed, well developed. Alert, Interactive. Skin: Warm, dry and intact. HEENT: Normocephalic/atraumatic. Neck/Thyroid: Supple. Full ROM. Lung: Clear to auscultation bilaterally, no wheezes, rales or rhonchi. No barrel chest. Equal chest rise and fall bilaterally. Cardiac: S1 and S2 appreciated. No murmurs/rubs or gallops. Psych: Stable mood and affect. Assessment: * Assessment: 1. B TX 26.0-26.9,adult - Z68.26 (Primary) 2 . E ssential hypertension - I10 3 . S easonal allergies - J30.2 4 . H istory of pneumonia - Z87.01 5 . C hronic insomnia - F51.04 6 . R isk for sexually transmitted disease - Z72.51 7 . E ncounter for examination of blood pressure with abnormal findings - Z01.31 Adi is a pleasant 50-year-o ld male present today to establish care as a new patient. # Recommend calling last primary care to transfer records. # Wt: 186.6 lbs, BMI: 26.77 recently seen in office for weight management. Previously on Zepbound in office however discontinued weight management visits as he had them begun purchasing Zepbound online. States he has made drastic lifestyle modifications in his life including diet and exercise to have such successful weight loss. Reached Zepbound 10 mg until hitting goal weight. Has since discontinued as he has upcoming cosmetic abdominoplasty that will be performed in [place]. # Hypertension: Blood pressure elevated in office today 140/80. Patient monitors blood pressure at home and able to review log which reveals systolic blood pressure readings of 110-120s and diastolics 70-80s. Will continue to monitor. #Seasonal allergies: Well-controlled. Continue [id number] antihistamines as needed. #History of pneumonia: Over 10+ years ago. #Chronic insomnia: Reports family history of insomnia. This is chronic for himself as well. Currently on mirtazapine 15 mg p.o. once daily. Previously has tried a variety of other sleep aids including Ambien and zopiclone. Has also been prescribed lorazepam in the past. States that zopiclone works the best for sleep taking at a low dose. Will further discuss at following visit. Will consider sleep study. # Sexual activity: Continue annual STD testing and encouraged safe sex practice. If symptoms develop, will consider sooner screening. # Preop visit scheduled for 06/08 for upcoming abdominoplasty in [place], [place]. Will order bloodwork today required for surgery as well as perform an EKG at preop. Patient will return with needed paperwork for preop clearance. # 4 weeks for CPE. All questions answered to patients satisfaction. Patient verbalized understanding of diagnosis and treatments explained. To call sooner prior to next visit it any questions/concerns arise. Case discussed with collaborating physician Dr. Frazier who reviewed the assessment and plan. Chart, medications, labs, vital signs reviewed. Dictation was accomplished with the use of [employer] voice recognition software, prone to medical misidentifications and grammatical errors. This is unintentional and the practitioner does try to identify and correct these, but some could still be present. Please do not hesitate to contact practitioner for clarification. Plan: * Treatment: * Labs: * L ab: COMPREHENSIVE METABOLIC PANEL L ab: HIV 1 & 2 Ab L ab: VITAMIN D,25-OH,TOTAL,IA L ab: URINALYSIS, COMPLETE L ab: APTT ?Lab: TSH+T3+Free T4+T3 Free?Lab: CHLAMYDIA/N. GONORRHOEAE RNA, TMA, UROGENITAL?Lab: LIPID PANEL, STANDARD?Lab: PT/INR?Lab: HEMOGLOBIN A1c?Lab: CBC (INCLUDES DIFF/PLT)?Lab: HSV 1 and 2 Ab, [id number]? Lab: SYPHILIS TESTING * Procedure Codes: 3 077F SYST BP = 140 MM HG6 IT, 3079F DIAST BP 80-89 MM HG * Images: Billing Information: * Visit Code: 36616 Office Visit, New Pt., Level 4. Modifiers: SA * Procedure Codes: 3077F SYST BP = 140 MM HG6 IT. 3079F DIAST BP 80-89 MM HG. * Sign off status: Completed true * Provider: Chi CANNON PA-C Date: 0 06/04/2025 Generated for Elina ac/Vladimir/Annieitting on: 0 06/08/2025 10:51 AM EDT History and Physical Notes * HPI (History of Present Illness) Category Sub-Category Detail Notes Category Not es Constitutional Adi is a 50-year-old male present today to establish care as a new patient. Seen today with in room. Previously seen in office for weight management. New patient paperwork reviewed. Medical, surgical social family history reviewed. Patient previously seen at [facility] for primary care. Last CPE was March 2024. Has routine dental and ophthalmology care. Immunizations- Forms: Up-to-date COVID: Vaccine x 2 Shingles: History of shingles 10+ years ago. Interested in vaccine Tetanus: Up-to-date Screening- Colonoscopy: Not up-to-date, will order today Patient reports history of occasional alcohol consumption, 2 drinks a month. Reports occasional edible for sleep. Denies any other drug use. Patient lives with . 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 Patient reports history of chronic insomnia. Only on mirtazapine however has tried a variety of sleep aids in the past including Ambien and zopiclone. States zoplicone has helped the best. Patient discloses that he and his are involved in the [employer] community. Requesting annual STD testing. Patient had previously had a long-term girlfriend of 7 years however this ended about a year ago. Has preop visit scheduled for 06/08 for cosmetic abdominoplasty that will be performed in [place]. Physical Examination Category Sub-Category Detail Notes Section Note s General: Age appropriate male, well appearing, no acute distress, speaking in full sentences without respiratory compromise. Well groomed, well developed. Alert, Interactive. Skin: Warm, dry and intact. HEENT: Normocephalic/atraumatic. Neck/Thyroid: Supple. Full ROM. Lung: Clear to auscultation bilaterally, no wheezes, rales or rhonchi. No barrel chest. Equal chest rise and fall bilaterally. Cardiac: S1 and S2 appreciated. No murmurs/rubs or gallops. Psych: Stable mood and affect.
--- NOTE | ~2025-06-08 | XR_ITS ---
CLINICAL HISTORY: PRE-OPERATIVE CLEARANCE Chest radiograph PA and lateral views Comparison: None Findings: Cardiomediastinal silhouette normal. No consolidation. Several small dense spherical densities up to 5 mm of the right lower lobe. No pleural effusion. No pneumothorax. No free air under the diaphragms. No acute fracture. Soft tissue is unremarkable. Impression: No acute cardiopulmonary finding. Probable right lower lobe granulomata or vessel on ends. This document has been electronically signed by: Tanya French MD on 06/09/2025 11:55:09
--- OUTSIDE RECORDS SUMMARY | 2025-06-08 10:51 | XMS_ITS | Patient Health Record ---
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 Role Phone KATHLEEN CANNON Unavailable [phone] DARNELL FRAZIER Unavailable [phone] Allergies Allergen (clinical drug ingredient) Drug/Non Drug [...] 0 RR_SystolicBP 0 RR_SystolicBP 0 RR_SystolicBP 0 Reason For Referral No Information Medications Medication SIG (Take, Route, Fr equency, [...] consumption Rare marijuana edible use for sleep Ocassional alcohol consumption Rare marijuana edible use for sleep Problems Problem Type SNOMED Code ICD Code Onset Dates Problem Status W/U Status Risk Notes Problem Abnormal blood pressure (53882437) Encounter for examination of blood pressure with abnormal findings (Z01.31) Active confirmed Problem Essential hypertension (89034792) Essential hypertension (I10) Active confirmed Problem Seasonal allergy (751291856) Seasonal allergies (J30.2) Active confirmed Problem Vitamin D deficiency (58042897) Vitamin D deficiency (E55.9) Active confirmed Problem Body mass index 40+ - morbidly obese (346578988) BMI 40.0-44.9, adult (Z68.41) Active confirmed Problem Obesity (258298011) Obesity (BMI 30-39.9) (E66.9) Active confirmed Problem Obese class II (071026916977418 ) BMI 37.0-37.9, adult (Z68.37) Active confirmed Problem Morbid obesity (249410463) Severe obesity (BMI >= 40) (E66.01) Active confirmed Problem Acute anteroseptal myocardial infarction (27637260) Acute anteroseptal myocardial infarction (I21.09) Active confirmed Problem Chronic insomnia (985705213) Chronic insomnia (F51.04) Active confirmed Vital Signs Heart Rate 81 /min 06/08/2025 Blood pressure diastolic 78 mm Hg 06/08/2025 Oximetry 99 % 06/08/2025 Height 70 in 06/08/2025 Blood pressure systolic 114 mm Hg 06/08/2025 Weight 187.8 lbs 06/08/2025 BMI 26.94 kg/m2 06/08/2025 Encounters Encounter Location Date Provider Diagnosis [facility] [address] [place], [place] 06/30/2024 TALAL FRAZIER [facility] [address] [place], [place] 07/06/2024 TALAL FRAZIER [facility] [address] [place], [place] 07/14/2024 TALAL FRAZIER [facility] [address] [place], [place] 07/22/2024 TALAL FRAZIER [facility] [address] [place], [place] 07/28/2024 TALAL FRAZIER [facility] [address] [place], [place] 08/04/2024 TALAL FRAZIER [facility] [address] [place], [place] 08/11/2024 TALAL FRAZIER [facility] [address] [place], [place] 08/17/2024 TALAL FRAZIER [facility] [address] [place], [place] 08/24/2024 TALAL FRAZIER [facility] [address] [place], [place] 06/08/2025 KATHLEEN CANNON Essential hypertensi on I10 ; BMI 26.0-26.9,adult Z68.26 ; Seasonal allergies J30.2 ; History of pneumonia Z87.01 ; Chronic insomnia F51.04 ; Risk for sexually transmitted disease Z72.51 ; Encounter for examination of blood pressure with abnormal findings Z01.31 ; Encounter for screening for cardiovascular disorders Z13.6 ; Pre-operative clearance Z01.818 and Acute anteroseptal myocardial infarction I21.[address] [facility] [address] [place], [place] 06/23/2024 KATHLEENLAM SHIA Severe obesity (BMI >= 40) E66.01 ; BMI 40.0-44.9, adult Z68.41 and Elevated blood pressure reading R03.[address] [facility] [address] [place], [place] 07/23/2024 KATHLEENLAM CANNON Obesity (BMI 30-39.9 ) E66.9 ; BMI 37.0-37.9, adult Z68.37 and Elevated blood pressure reading R03.[address] [facility] [address] [place], [place] 06/04/2025 KATHLEENLAM SHIA BMI 26.0-26.9,adult Z68.26 ; Essential hypertension I10 ; Seasonal allergies J30.2 ; History of pneumonia Z87.01 ; Chronic insomnia F51.04 ; Risk for sexually transmitted disease Z72.51 and Encounter for examination of blood pressure with abnormal findings Z01.31 [facility] [address] 06/23/2024 KATHLEEN KASSANDRA [facility] [address] [place], [place] 07/28/2024 KATHLEEN KASSANDRA [facility] [address] 08/04/2024 KATHLEEN KASSANDRA [facility] [address] [place], [place] 08/04/2024 KATHLEEN KASSANDRA [facility] [address] [facility] [address] 06/08/2025 KATHLEEN CANNON [facility] [address] [place] [address] 07/14/2024 KATHLEEN CANNON [facility] [address] [facility] [address] [place], [place] 07/27/2024 KATHLEEN CANNON [facility] [address] 07/27/2024 KATHLEEN CANNON Assessments Encounter Date Diagnosis (ICD Code) Assessment Notes Treatment Notes Treatment Clinical Notes Section Notes 06/23/2024 Severe obesity (BMI >= 40) (ICD-10 - E66.01) # Morbid obesity: 06/23/24: Wt: 281.6 lbs, BMI: 40.4 Discussed need for lifestyle modifications including weight loss medication. Discussed diet of 2200 kimo focusing on high-protein and eliminating processed foods, white bread, alcohol, sugar. 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 Discussed with patient plan to begin reducing soda at work to 1 drink a night. Discussed protein options including hard-boiled eggs, chicken, tuna, protein shakes to add into diet. Discussed increasing physical activity with a goal of 8-10,000 steps daily. Ways to reach this goal include daily walks as well as parking further away at parking lots. Patient is in the process of obtaining lab work for primary care and will review at next visit. Patient interested in injectables for weight loss medication and will begin tirzepatide 2.5 mg weekly injections here in office. Discussed side effects of constipation and nausea. Plan to follow-up in 4 weeks to assess weight. Patient was reassured and welcomed to the practice. We discussed that we stress a hollistic medical approach with emphasis on lifestyle modification. Patient was informed that a healthy lifestyle with exercise and good eating habits can help reduce his risk of medical complications. Patient is explained that obesity increases his risk of diabetes, cardiovascular disease, or organ damage. We spent a lot of time discussing the relationship between food, exercise, sleep, mental health and obesity. Patient was counseled on the importance EATING local, organic food when possible. Patient was educated on clean 15 and dirty dozen. I provided information about reading books called The Food Rules by Tres Awan and Eat Fat Get Lean by Dr Virgil Marin. Self education is important in the journey for weight management. Patient was offered diagnostic testing/ SECA scale. We want to measure visceral adiposity, advanced body composition, adverse lipids, fatty acid balance, risk for heart disease and atherosclerosis, markers of inflammation and genetic susceptibility. Patient was counseled on weight management and was advised to lose weight using A. Meal Replacement Products Patient was educated on the replacement products called optifast. This is a good way of taking fixed amount of calories. It has been shown in studies to be ineffective weight management tool. This however has to be coupled with lifestyle intervention as well as laboratory data and EKG monitoring. It is impossible to know how a person will tolerate complete meal replacement. The side effects of meal replacement and weight loss could include syncopal attacks, dizziness, gallstones, potential cholecystectomy, possible heart attack and even . The benefits of meal replacement would be potential weight loss but no guarantees can be made. Meal replacement products are not covered by insurance. Once the patient has bought these products we cannot return them B. Lifestyle management which includes several strategies as below 1. Eat a low carbohydrate good fat good protein diet. Eliminate refined carbohydrates from the diet. Limit sugared beverages. Eat local organic when possible. Cook your own meals. Read food labels. Focus on healthy snacks. Portion control and food with low glycemic index 2. Exercise regularly. Try to get at least 6000 steps a day. Use a predominant to track activity level. Consider using apps like 7 minute excercise, my[employer]pal, lose it, stick as needed for self-monitoring and weight management. Consider group exercises. Consider hiring a personal investment adviser. Regular exercise is lomeli to sustainable health and prevents as a buffer against weight regain 3. Sleep is most important for healing. Try to sleep at least 6-8 hours a night. A good quality sleep needs a sleep ritual with ideal room temperature of around 68. It might help to take a shower and have no electronics in the room and sleep in a very dark room without artificial light. Start sleep routine and get up early in the morning and go to bed on time. 4. Make a social connection. Surround yourself with positive people with positive energy. Connect with friends and family. 5. Get into the habit of meditating and mindfulness while doing everything. 6. Go outside and connect with nature. C. Prescription medications Patient was educated on the use of prescription medications for medical weight loss. This is a growing list and includes phentermine, Topamax, Qsymia, contrave, belviq and saxenda, wegovy etc. All prescription medications could have side effects including but not limited to kidney stones, seizure disorder, cardiac arrhythmias, heart attack, pancreatitis, GI effects, Etc. Patient was encouraged to read the prescription insert and discuss with their pharmacist to make an informed decision about taking medication and know that these medications are being prescribed with good intentions and we do not know how a patient would react to her medication. Some medications are FDA approved for weight loss and there is also off label use depending on patient's inability to afford medications in an attempt to lose weight. D. Behavioral counseling was done to establish a relationship between food and an mood. Patient was provided information about local counseling and psychiatry and Dr Ledbetter at [facility]. We would like to cover regular topics and build on low glycemic eating exercise mindful eating, using yoga and meditation along with deep breathing and connecting with friends and family. E. MASS PAT reviewed, Patient's current medications were reviewed and opinion was given on medication that can cause weight gain and can be substituted F. Patient was assessed for risk with obesity including and not limiting to atherosclerosis, heart disease, stroke, kidney disease, restrictive lung disease, irritable bowel syndrome and overall mortality. Risk of developing prediabetes diabetes and metabolic syndrome was discussed G. Therapeutic plan: We have decided to make therapeutic plan which would include choosing wisely on calories restricting portion getting active, tracking weight, getting good quality sleep and working on time management H. Patient will follow up in 4 weeks for weight management Total time spent today was 60 minutes of which greater than 50% was spent on coordinating and counseling Case discussed with collaborating physician Yue Frazier who reviewed the assessment and plan. Chart, medications, labs, vital signs reviewed. Dictation was accomplished with the use of [employer] voice recognition software, prone to medical misidentifications and grammatical errors. This is unintentional and the practitioner does try to identify and correct these, but some could still be present. Please do not hesitate to contact practitioner for clarification. All questions answered to patients satisfaction. Patient verbalized understanding of diagnosis and treatments explained. To call sooner prior to next visit it any questions/concerns arise. 07/23/2024 Obesity (BMI 30-39.9) (ICD-10 - E66.9) Adi is a 49-year-old male present for weight management follow-up. 06/23/24: Wt: 281.6 lbs, BMI: 40.4 Discussed need for lifestyle modifications including weight loss medication. Discussed diet of 2200 kimo focusing on high-protein and eliminating processed foods, white bread, alcohol, sugar. 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 Discussed with patient plan to begin reducing soda at work to 1 drink a night. Discussed protein options including hard-boiled eggs, chicken, tuna, protein shakes to add into diet. Discussed increasing physical activity with a goal of 8-10,000 steps daily. Ways to reach this goal include daily walks as well as parking further away at parking lots. Patient is in the process of obtaining lab work for primary care and will review at next visit. Patient interested in injectables for weight loss medication and will begin tirzepatide 2.5 mg weekly injections here in office. Discussed side effects of constipation and nausea. Plan to follow-up in 4 weeks to assess weight. 07/23/24: Wt: 261.4 lbs, BMI: 37.5. Patient has 1 injection of the tirzepatide 5 mg, started 1 day prior. Increased dose due to no change in appetite. Now states he has adequate appetite suppression and denies any side effects. Has been walking for physical activity and recently got a gym membership. Discussed SECA scan results, which show a 7 lbs fat loss, but also an 8 lbs muscle mass loss. Discussed importance of high protein with goal of 120 g daily to maintain muscle mass. Plan to begin weight training at the gym a few days a week in addition to daily walks with step count of 8-10k steps daily. Will continue to monitor muscle mass. Plan to continue tirzepatide 5 mg and follow up in 4 weeks. Patient concerned about cost of medication. Plan to also submit zepbound to insurance for [place]. Discussed with patient how it will most likely be rejected, but patient appreciates the attempt. Advised patient to call insurance regarding weight loss medication coverage for non-diabetics. Discussed with patient he can try biweekly injections to cut the cost, but patient would like to continue weekly. # Elevated blood pressure reading: Blood pressure elevated, 148/98. Patient denies any blood pressure medications. Denies any chest pain, shortness of breath, headaches, vision changes. Will continue to monitor. Advised patient addresses this with primary care. Total time spent is was 30 minutes, with more face to face time This medication is prescribed by or in consultation with a board certified obesity and weight management physician Dr. Darnell Frazier The patient will continue exercise regimen with an emphasis on improving/increasing steps to at least 6,000-10,000 steps per day. Increasing cardio and strength training exercises as tolerated to improve weight loss and work on building muscle mass. Patient is committed to smarter eating with calorie counting and mindful eating. Limiting processed foods and carbohydrates and increasing leafy greens and lean proteins as well as fruits into their diet. Patient was counseled on the importance of eating local, organic food when possible. Patient has been counseled regarding effects of GLP/GIP-1 agonists and other FDA approved weight loss medications with regards to a multifactorial approach of weight loss as mentioned above and that the medication alone will not be sufficient to meet patients goals. We discussed holistic medication approach with emphasis on lifestyle modification. Discussed obesity as it increases risk of diabetes, cardiovascular disease, and/or organ damage. We spent a lot of time discussing the relationship between food, exercise, sleep, mental health, and obesity. We discussed the importance of having SECAs done every visit and having accountability done during these visits. That the scale is done to monitor not only weight loss but the body composition during medication management and healthy lifestyle changes. We discussed that if the patient is unable at times to financially afford this scale that we would rather waive the fee and have the scale done than have the patient not have the scale obtained. Will follow up with the patient in 4 weeks time to monitor weight loss. total time was 30 min, greater than 50 % of time was spent on care coordination Case discussed with collaborating physician Laurel Frazier who reviewed the assessment and plan. Chart, medications, labs, vital signs reviewed. Dictation was accomplished with the use of [employer] voice recognition software, prone to medical misidentifications and grammatical errors. This is unintentional and the practitioner does try to identify and correct these, but some could still be present. Please do not hesitate to contact practitioner for clarification. All questions answered to patients satisfaction. Patient verbalized understanding of diagnosis and treatments explained. To call sooner prior to next visit it any questions/concerns arise. 07/23/2024 BMI 37.0-37.9, adult (ICD-10 - Z68.37) Adi is a 49-year-old male present for weight management follow-up. 06/23/24: Wt: 281.6 lbs, BMI: 40.4 Discussed need for lifestyle modifications including weight loss medication. Discussed diet of 2200 kimo focusing on high-protein and eliminating processed foods, white bread, alcohol, sugar. 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 Discussed with patient plan to begin reducing soda at work to 1 drink a night. Discussed protein options including hard-boiled eggs, chicken, tuna, protein shakes to add into diet. Discussed increasing physical activity with a goal of 8-10,000 steps daily. Ways to reach this goal include daily walks as well as parking further away at parking lots. Patient is in the process of obtaining lab work for primary care and will review at next visit. Patient interested in injectables for weight loss medication and will begin tirzepatide 2.5 mg weekly injections here in office. Discussed side effects of constipation and nausea. Plan to follow-up in 4 weeks to assess weight. 07/23/24: Wt: 261.4 lbs, BMI: 37.5. Patient has 1 injection of the tirzepatide 5 mg, started 1 day prior. Increased dose due to no change in appetite. Now states he has adequate appetite suppression and denies any side effects. Has been walking for physical activity and recently got a gym membership. Discussed SECA scan results, which show a 7 lbs fat loss, but also an 8 lbs muscle mass loss. Discussed importance of high protein with goal of 120 g daily to maintain muscle mass. Plan to begin weight training at the gym a few days a week in addition to daily walks with step count of 8-10k steps daily. Will continue to monitor muscle mass. Plan to continue tirzepatide 5 mg and follow up in 4 weeks. Patient concerned about cost of medication. Plan to also submit zepbound to insurance for [place]. Discussed with patient how it will most likely be rejected, but patient appreciates the attempt. Advised patient to call insurance regarding weight loss medication coverage for non-diabetics. Discussed with patient he can try biweekly injections to cut the cost, but patient would like to continue weekly. # Elevated blood pressure reading: Blood pressure elevated, 148/98. Patient denies any blood pressure medications. Denies any chest pain, shortness of breath, headaches, vision changes. Will continue to monitor. Advised patient addresses this with primary care. Total time spent is was 30 minutes, with more face to face time This medication is prescribed by or in consultation with a board certified obesity and weight management physician Dr. Darnell Frazier The patient will continue exercise regimen with an emphasis on improving/increasing steps to at least 6,000-10,000 steps per day. Increasing cardio and strength training exercises as tolerated to improve weight loss and work on building muscle mass. Patient is committed to smarter eating with calorie counting and mindful eating. Limiting processed foods and carbohydrates and increasing leafy greens and lean proteins as well as fruits into their diet. Patient was counseled on the importance of eating local, organic food when possible. Patient has been counseled regarding effects of GLP/GIP-1 agonists and other FDA approved weight loss medications with regards to a multifactorial approach of weight loss as mentioned above and that the medication alone will not be sufficient to meet patients goals. We discussed holistic medication approach with emphasis on lifestyle modification. Discussed obesity as it increases risk of diabetes, cardiovascular disease, and/or organ damage. We spent a lot of time discussing the relationship between food, exercise, sleep, mental health, and obesity. We discussed the importance of having SECAs done every visit and having accountability done during these visits. That the scale is done to monitor not only weight loss but the body composition during medication management and healthy lifestyle changes. We discussed that if the patient is unable at times to financially afford this scale that we would rather waive the fee and have the scale done than have the patient not have the scale obtained. Will follow up with the patient in 4 weeks time to monitor weight loss. total time was 30 min, greater than 50 % of time was spent on care coordination Case discussed with collaborating physician Laurel Frazier who reviewed the assessment and plan. Chart, medications, labs, vital signs reviewed. Dictation was accomplished with the use of [employer] voice recognition software, prone to medical misidentifications and grammatical errors. This is unintentional and the practitioner does try to identify and correct these, but some could still be present. Please do not hesitate to contact practitioner for clarification. All questions answered to patients satisfaction. Patient verbalized understanding of diagnosis and treatments explained. To call sooner prior to next visit it any questions/concerns arise. 06/23/2024 BMI 40.0-44.9, adult (ICD-10 - Z68.41) # Morbid obesity: 06/23/24: Wt: 281.6 lbs, BMI: 40.4 Discussed need for lifestyle modifications including weight loss medication. Discussed diet of 2200 kimo focusing on high-protein and eliminating processed foods, white bread, alcohol, sugar. 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 Discussed with patient plan to begin reducing soda at work to 1 drink a night. Discussed protein options including hard-boiled eggs, chicken, tuna, protein shakes to add into diet. Discussed increasing physical activity with a goal of 8-10,000 steps daily. Ways to reach this goal include daily walks as well as parking further away at parking lots. Patient is in the process of obtaining lab work for primary care and will review at next visit. Patient interested in injectables for weight loss medication and will begin tirzepatide 2.5 mg weekly injections here in office. Discussed side effects of constipation and nausea. Plan to follow-up in 4 weeks to assess weight. Patient was reassured and welcomed to the practice. We discussed that we stress a hollistic medical approach with emphasis on lifestyle modification. Patient was informed that a healthy lifestyle with exercise and good eating habits can help reduce his risk of medical complications. Patient is explained that obesity increases his risk of diabetes, cardiovascular disease, or organ damage. We spent a lot of time discussing the relationship between food, exercise, sleep, mental health and obesity. Patient was counseled on the importance EATING local, organic food when possible. Patient was educated on clean 15 and dirty dozen. I provided information about reading books called The Food Rules by Tres Awan and Eat Fat Get Lean by Dr Virgil Marin. Self education is important in the journey for weight management. Patient was offered diagnostic testing/ SECA scale. We want to measure visceral adiposity, advanced body composition, adverse lipids, fatty acid balance, risk for heart disease and atherosclerosis, markers of inflammation and genetic susceptibility. Patient was counseled on weight management and was advised to lose weight using A. Meal Replacement Products Patient was educated on the replacement products called optifast. This is a good way of taking fixed amount of calories. It has been shown in studies to be ineffective weight management tool. This however has to be coupled with lifestyle intervention as well as laboratory data and EKG monitoring. It is impossible to know how a person will tolerate complete meal replacement. The side effects of meal replacement and weight loss could include syncopal attacks, dizziness, gallstones, potential cholecystectomy, possible heart attack and even . The benefits of meal replacement would be potential weight loss but no guarantees can be made. Meal replacement products are not covered by insurance. Once the patient has bought these products we cannot return them B. Lifestyle management which includes several strategies as below 1. Eat a low carbohydrate good fat good protein diet. Eliminate refined carbohydrates from the diet. Limit sugared beverages. Eat local organic when possible. Cook your own meals. Read food labels. Focus on healthy snacks. Portion control and food with low glycemic index 2. Exercise regularly. Try to get at least 6000 steps a day. Use a predominant to track activity level. Consider using apps like 7 minute excercise, Wicronpal, lose it, stick as needed for self-monitoring and weight management. Consider group exercises. Consider hiring a personal investment adviser. Regular exercise is lomeli to sustainable health and prevents as a buffer against weight regain 3. Sleep is most important for healing. Try to sleep at least 6-8 hours a night. A good quality sleep needs a sleep ritual with ideal room temperature of around 68. It might help to take a shower and have no electronics in the room and sleep in a very dark room without artificial light. Start sleep routine and get up early in the morning and go to bed on time. 4. Make a social connection. Surround yourself with positive people with positive energy. Connect with friends and family. 5. Get into the habit of meditating and mindfulness while doing everything. 6. Go outside and connect with nature. C. Prescription medications Patient was educated on the use of prescription medications for medical weight loss. This is a growing list and includes phentermine, Topamax, Qsymia, contrave, belviq and saxenda, wegovy etc. All prescription medications could have side effects including but not limited to kidney stones, seizure disorder, cardiac arrhythmias, heart attack, pancreatitis, GI effects, Etc. Patient was encouraged to read the prescription insert and discuss with their pharmacist to make an informed decision about taking medication and know that these medications are being prescribed with good intentions and we do not know how a patient would react to her medication. Some medications are FDA approved for weight loss and there is also off label use depending on patient's inability to afford medications in an attempt to lose weight. D. Behavioral counseling was done to establish a relationship between food and an mood. Patient was provided information about local counseling and psychiatry and Dr Ledbetter at [facility]. We would like to cover regular topics and build on low glycemic eating exercise mindful eating, using yoga and meditation along with deep breathing and connecting with friends and family. E. MASS PAT reviewed, Patient's current medications were reviewed and opinion was given on medication that can cause weight gain and can be substituted F. Patient was assessed for risk with obesity including and not limiting to atherosclerosis, heart disease, stroke, kidney disease, restrictive lung disease, irritable bowel syndrome and overall mortality. Risk of developing prediabetes diabetes and metabolic syndrome was discussed G. Therapeutic plan: We have decided to make therapeutic plan which would include choosing wisely on calories restricting portion getting active, tracking weight, getting good quality sleep and working on time management H. Patient will follow up in 4 weeks for weight management Total time spent today was 60 minutes of which greater than 50% was spent on coordinating and counseling Case discussed with collaborating physician Yue Frazier who reviewed the assessment and plan. Chart, medications, labs, vital signs reviewed. Dictation was accomplished with the use of [employer] voice recognition software, prone to medical misidentifications and grammatical errors. This is unintentional and the practitioner does try to identify and correct these, but some could still be present. Please do not hesitate to contact practitioner for clarification. All questions answered to patients satisfaction. Patient verbalized understanding of diagnosis and treatments explained. To call sooner prior to next visit it any questions/concerns arise. 06/04/2025 Essential hypertension (ICD-10 - I10) Adi [...] cosmetic abdominoplasty that will be performed in [place]. # Hypertension: Blood pressure elevated in office today 140/80. Patient monitors blood pressure at home and able to review log which reveals systolic blood pressure readings of 110-120s and diastolics 70-80s. Will continue to monitor. #Seasonal allergies: Well-controlled. Continue dygu-trq-nutkkwf antihistamines as needed. #History of pneumonia: Over [...] scheduled for 06/08 for upcoming abdominoplasty in [place]. Will order bloodwork today required for [...] Dictation was accomplished with the use of [employer] voice recognition software, prone to medical misidentifications and grammatical errors. This is unintentional and the practitioner does try to identify and correct these, but some could still be present. Please do not hesitate to contact practitioner for clarification. 06/04/2025 BMI 26.0-26.9,adult (ICD-10 - Z68.26) Adi [...] cosmetic abdominoplasty that will be performed in [place]. # Hypertension: Blood pressure elevated in office today 140/80. Patient monitors blood pressure at home and able to review log which reveals systolic blood pressure readings of 110-120s and diastolics 70-80s. Will continue to monitor. #Seasonal allergies: Well-controlled. Continue zjsf-ndg-vsoaowd antihistamines as needed. #History of pneumonia: Over [...] scheduled for 06/08 for upcoming abdominoplasty in [place]. Will order bloodwork today required for [...] Dictation was accomplished with the use of [employer] voice recognition software, prone to medical misidentifications [...] an acceptable risk and fit to undergo () as mentioned above under anesthesia with its attendant risks. Please review the attached history and physical will help you in the management of this patient Preoperative cardiac risk index risk/Barone LILIAM *0.2% risk of [place], cardiac arrest or other cardiac events intraoperatively or up to 30 days postop [place] RCI *1.1% 30 day risk of [place] or cardiac arrest Please do not hesitate to further contact me for information or questions 06/04/2025 Seasonal allergies (ICD-10 - J30.2) Adi [...] cosmetic abdominoplasty that will be performed in [place]. # Hypertension: Blood pressure elevated in office today 140/80. Patient monitors blood pressure at home and able to review log which reveals systolic blood pressure readings of 110-120s and diastolics 70-80s. Will continue to monitor. #Seasonal allergies: Well-controlled. Continue tcdt-ljz-cijciyn antihistamines as needed. #History of pneumonia: Over [...] scheduled for 06/08 for upcoming abdominoplasty in [place]. Will order bloodwork today required for [...] Dictation was accomplished with the use of [employer] voice recognition software, prone to medical misidentifications and grammatical errors. This is unintentional and the practitioner does try to identify and correct these, but some could still be present. Please do not hesitate to contact practitioner for clarification. 06/23/2024 Elevated blood pressure reading (ICD-10 - R03.0) # Morbid obesity: 06/23/24: Wt: 281.6 lbs, BMI: 40.4 Discussed need for lifestyle modifications including weight loss medication. Discussed diet of 2200 kimo focusing on high-protein and eliminating processed foods, white bread, alcohol, sugar. 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 Discussed with patient plan to begin reducing soda at work to 1 drink a night. Discussed protein options including hard-boiled eggs, chicken, tuna, protein shakes to add into diet. Discussed increasing physical activity with a goal of 8-10,000 steps daily. Ways to reach this goal include daily walks as well as parking further away at parking lots. Patient is in the process of obtaining lab work for primary care and will review at next visit. Patient interested in injectables for weight loss medication and will begin tirzepatide 2.5 mg weekly injections here in office. Discussed side effects of constipation and nausea. Plan to follow-up in 4 weeks to assess weight. Patient was reassured and welcomed to the practice. We discussed that we stress a hollistic medical approach with emphasis on lifestyle modification. Patient was informed that a healthy lifestyle with exercise and good eating habits can help reduce his risk of medical complications. Patient is explained that obesity increases his risk of diabetes, cardiovascular disease, or organ damage. We spent a lot of time discussing the relationship between food, exercise, sleep, mental health and obesity. Patient was counseled on the importance EATING local, organic food when possible. Patient was educated on clean 15 and dirty dozen. I provided information about reading books called The Food Rules by Tres Awan and Eat Fat Get Lean by Dr Virgil Marin. Self education is important in the journey for weight management. Patient was offered diagnostic testing/ SECA scale. We want to measure visceral adiposity, advanced body composition, adverse lipids, fatty acid balance, risk for heart disease and atherosclerosis, markers of inflammation and genetic susceptibility. Patient was counseled on weight management and was advised to lose weight using A. Meal Replacement Products Patient was educated on the replacement products called optifast. This is a good way of taking fixed amount of calories. It has been shown in studies to be ineffective weight management tool. This however has to be coupled with lifestyle intervention as well as laboratory data and EKG monitoring. It is impossible to know how a person will tolerate complete meal replacement. The side effects of meal replacement and weight loss could include syncopal attacks, dizziness, gallstones, potential cholecystectomy, possible heart attack and even . The benefits of meal replacement would be potential weight loss but no guarantees can be made. Meal replacement products are not covered by insurance. Once the patient has bought these products we cannot return them B. Lifestyle management which includes several strategies as below 1. Eat a low carbohydrate good fat good protein diet. Eliminate refined carbohydrates from the diet. Limit sugared beverages. Eat local organic when possible. Cook your own meals. Read food labels. Focus on healthy snacks. Portion control and food with low glycemic index 2. Exercise regularly. Try to get at least 6000 steps a day. Use a predominant to track activity level. Consider using apps like 7 minute excercise, myfitGreenNotepal, lose it, stick as needed for self-monitoring and weight management. Consider group exercises. Consider hiring a personal investment adviser. Regular exercise is lomeli to sustainable health and prevents as a buffer against weight regain 3. Sleep is most important for healing. Try to sleep at least 6-8 hours a night. A good quality sleep needs a sleep ritual with ideal room temperature of around 68. It might help to take a shower and have no electronics in the room and sleep in a very dark room without artificial light. Start sleep routine and get up early in the morning and go to bed on time. 4. Make a social connection. Surround yourself with positive people with positive energy. Connect with friends and family. 5. Get into the habit of meditating and mindfulness while doing everything. 6. Go outside and connect with nature. C. Prescription medications Patient was educated on the use of prescription medications for medical weight loss. This is a growing list and includes phentermine, Topamax, Qsymia, contrave, belviq and saxenda, wegovy etc. All prescription medications could have side effects including but not limited to kidney stones, seizure disorder, cardiac arrhythmias, heart attack, pancreatitis, GI effects, Etc. Patient was encouraged to read the prescription insert and discuss with their pharmacist to make an informed decision about taking medication and know that these medications are being prescribed with good intentions and we do not know how a patient would react to her medication. Some medications are FDA approved for weight loss and there is also off label use depending on patient's inability to afford medications in an attempt to lose weight. D. Behavioral counseling was done to establish a relationship between food and an mood. Patient was provided information about local counseling and psychiatry and Dr Ledbetter at [facility]. We would like to cover regular topics and build on low glycemic eating exercise mindful eating, using yoga and meditation along with deep breathing and connecting with friends and family. E. MASS PAT reviewed, Patient's current medications were reviewed and opinion was given on medication that can cause weight gain and can be substituted F. Patient was assessed for risk with obesity including and not limiting to atherosclerosis, heart disease, stroke, kidney disease, restrictive lung disease, irritable bowel syndrome and overall mortality. Risk of developing prediabetes diabetes and metabolic syndrome was discussed G. Therapeutic plan: We have decided to make therapeutic plan which would include choosing wisely on calories restricting portion getting active, tracking weight, getting good quality sleep and working on time management H. Patient will follow up in 4 weeks for weight management Total time spent today was 60 minutes of which greater than 50% was spent on coordinating and counseling Case discussed with collaborating physician Yue Frazier who reviewed the assessment and plan. Chart, medications, labs, vital signs reviewed. Dictation was accomplished with the use of [employer] voice recognition software, prone to medical misidentifications and grammatical errors. This is unintentional and the practitioner does try to identify and correct these, but some could still be present. Please do not hesitate to contact practitioner for clarification. All questions answered to patients satisfaction. Patient verbalized understanding of diagnosis and treatments explained. To call sooner prior to next visit it any questions/concerns arise. 07/23/2024 Elevated blood pressure reading (ICD-10 - R03.0) Adi is a 49-year-old male present for weight management follow-up. 06/23/24: Wt: 281.6 lbs, BMI: 40.4 Discussed need for lifestyle modifications including weight loss medication. Discussed diet of 2200 kimo focusing on high-protein and eliminating processed foods, white bread, alcohol, sugar. 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 Discussed with patient plan to begin reducing soda at work to 1 drink a night. Discussed protein options including hard-boiled eggs, chicken, tuna, protein shakes to add into diet. Discussed increasing physical activity with a goal of 8-10,000 steps daily. Ways to reach this goal include daily walks as well as parking further away at parking lots. Patient is in the process of obtaining lab work for primary care and will review at next visit. Patient interested in injectables for weight loss medication and will begin tirzepatide 2.5 mg weekly injections here in office. Discussed side effects of constipation and nausea. Plan to follow-up in 4 weeks to assess weight. 07/23/24: Wt: 261.4 lbs, BMI: 37.5. Patient has 1 injection of the tirzepatide 5 mg, started 1 day prior. Increased dose due to no change in appetite. Now states he has adequate appetite suppression and denies any side effects. Has been walking for physical activity and recently got a gym membership. Discussed SECA scan results, which show a 7 lbs fat loss, but also an 8 lbs muscle mass loss. Discussed importance of high protein with goal of 120 g daily to maintain muscle mass. Plan to begin weight training at the gym a few days a week in addition to daily walks with step count of 8-10k steps daily. Will continue to monitor muscle mass. Plan to continue tirzepatide 5 mg and follow up in 4 weeks. Patient concerned about cost of medication. Plan to also submit zepbound to insurance for [place]. Discussed with patient how it will most likely be rejected, but patient appreciates the attempt. Advised patient to call insurance regarding weight loss medication coverage for non-diabetics. Discussed with patient he can try biweekly injections to cut the cost, but patient would like to continue weekly. # Elevated blood pressure reading: Blood pressure elevated, 148/98. Patient denies any blood pressure medications. Denies any chest pain, shortness of breath, headaches, vision changes. Will continue to monitor. Advised patient addresses this with primary care. Total time spent is was 30 minutes, with more face to face time This medication is prescribed by or in consultation with a board certified obesity and weight management physician Dr. Darnell Frazier The patient will continue exercise regimen with an emphasis on improving/increasing steps to at least 6,000-10,000 steps per day. Increasing cardio and strength training exercises as tolerated to improve weight loss and work on building muscle mass. Patient is committed to smarter eating with calorie counting and mindful eating. Limiting processed foods and carbohydrates and increasing leafy greens and lean proteins as well as fruits into their diet. Patient was counseled on the importance of eating local, organic food when possible. Patient has been counseled regarding effects of GLP/GIP-1 agonists and other FDA approved weight loss medications with regards to a multifactorial approach of weight loss as mentioned above and that the medication alone will not be sufficient to meet patients goals. We discussed holistic medication approach with emphasis on lifestyle modification. Discussed obesity as it increases risk of diabetes, cardiovascular disease, and/or organ damage. We spent a lot of time discussing the relationship between food, exercise, sleep, mental health, and obesity. We discussed the importance of having SECAs done every visit and having accountability done during these visits. That the scale is done to monitor not only weight loss but the body composition during medication management and healthy lifestyle changes. We discussed that if the patient is unable at times to financially afford this scale that we would rather waive the fee and have the scale done than have the patient not have the scale obtained. Will follow up with the patient in 4 weeks time to monitor weight loss. total time was 30 min, greater than 50 % of time was spent on care coordination Case discussed with collaborating physician Laurel Frazier who reviewed the assessment and plan. Chart, medications, labs, vital signs reviewed. Dictation was accomplished with the use of [employer] voice recognition software, prone to medical misidentifications and grammatical errors. This is unintentional and the practitioner does try to identify and correct these, but some could still be present. Please do not hesitate to contact practitioner for clarification. All questions answered to patients satisfaction. Patient verbalized understanding of diagnosis and treatments explained. To call sooner prior to next visit it any questions/concerns arise. 06/08/2025 BMI 26.0-26.9,adult (ICD-10 - Z68.26) This is to inform you that I have examined our patient and after reviewing all clinically relevant information I find the patient to be medically stable, and is at an acceptable risk and fit to undergo () as mentioned above under anesthesia with its attendant risks. Please review the attached history and physical will help you in the management of this patient Preoperative cardiac risk index risk/Barone LILIAM *0.2% risk of [place], cardiac arrest or other cardiac events intraoperatively or up to 30 days postop [place] RCI *1.1% 30 day risk of [place] or cardiac arrest Please do not hesitate to further contact me for information or questions 06/08/2025 Seasonal allergies (ICD-10 - J30.2) This is to inform you that I have examined our patient and after reviewing all clinically relevant information I find the patient to be medically stable, and is at an acceptable risk and fit to undergo () as mentioned above under anesthesia with its attendant risks. Please review the attached history and physical will help you in the management of this patient Preoperative cardiac risk index risk/Barone LILIAM *0.2% risk of [place], cardiac arrest or other cardiac events intraoperatively or up to 30 days postop [place] RCI *1.1% 30 day risk of [place] or cardiac arrest Please do not hesitate to further contact me for information or questions 06/04/2025 History of pneumonia (ICD-10 - Z87.01) [...] cosmetic abdominoplasty that will be performed in [place]. # Hypertension: Blood pressure elevated in office today 140/80. Patient monitors blood pressure at home and able to review log which reveals systolic blood pressure readings of 110-120s and diastolics 70-80s. Will continue to monitor. #Seasonal allergies: Well-controlled. Continue jyva-pyw-bkwmkqu antihistamines as needed. #History of pneumonia: Over [...] scheduled for 06/08 for upcoming abdominoplasty in [place]. Will order bloodwork today required for [...] Dictation was accomplished with the use of [employer] voice recognition software, prone to medical misidentifications [...] cosmetic abdominoplasty that will be performed in [place]. # Hypertension: Blood pressure elevated in office today 140/80. Patient monitors blood pressure at home and able to review log which reveals systolic blood pressure readings of 110-120s and diastolics 70-80s. Will continue to monitor. #Seasonal allergies: Well-controlled. Continue svla-wnj-cefmsmp antihistamines as needed. #History of pneumonia: Over [...] scheduled for 06/08 for upcoming abdominoplasty in [place]. Will order bloodwork today required for [...] Dictation was accomplished with the use of [employer] voice recognition software, prone to medical misidentifications and grammatical errors. This is unintentional and the practitioner does try to identify and correct these, but some could still be present. Please do not hesitate to contact practitioner for clarification. 06/08/2025 History of pneumonia (ICD-10 - Z87.01) This is to inform you that I have examined our patient and after reviewing all clinically relevant information I find the patient to be medically stable, and is at an acceptable risk and fit to undergo () as mentioned above under anesthesia with its attendant risks. Please review the attached history and physical will help you in the management of this patient Preoperative cardiac risk index risk/Barone LILIAM *0.2% risk of [place], cardiac arrest or other cardiac events intraoperatively or up to 30 days postop [place] RCI *1.1% 30 day risk of [place] or cardiac arrest Please do not hesitate to further contact me for information or questions 06/08/2025 Chronic insomnia (ICD-10 - F51.04) This is to inform you that I have examined our patient and after reviewing all clinically relevant information I find the patient to be medically stable, and is at an acceptable risk and fit to undergo () as mentioned above under anesthesia with its attendant risks. Please review the attached history and physical will help you in the management of this patient Preoperative cardiac risk index risk/Barone LILIAM *0.2% risk of [place], cardiac arrest or other cardiac events intraoperatively or up to 30 days postop [place] RCI *1.1% 30 day risk of [place] or cardiac arrest Please do not hesitate to further contact me for information or questions 06/04/2025 Risk for sexually transmitted disease (ICD-10 [...] cosmetic abdominoplasty that will be performed in [place]. # Hypertension: Blood pressure elevated in office today 140/80. Patient monitors blood pressure at home and able to review log which reveals systolic blood pressure readings of 110-120s and diastolics 70-80s. Will continue to monitor. #Seasonal allergies: Well-controlled. Continue lhms-nka-fryqrhg antihistamines as needed. #History of pneumonia: Over [...] scheduled for 06/08 for upcoming abdominoplasty in [place], [place]. Will order bloodwork today required for [...] Dictation was accomplished with the use of [employer] voice recognition software, prone to medical misidentifications [...] cosmetic abdominoplasty that will be performed in [place]. # Hypertension: Blood pressure elevated in office today 140/80. Patient monitors blood pressure at home and able to review log which reveals systolic blood pressure readings of 110-120s and diastolics 70-80s. Will continue to monitor. #Seasonal allergies: Well-controlled. Continue iblo-mug-iugwkso antihistamines as needed. #History of pneumonia: Over [...] scheduled for 06/08 for upcoming abdominoplasty in [place], [place]. Will order bloodwork today required for [...] Dictation was accomplished with the use of [employer] voice recognition software, prone to medical misidentifications and grammatical errors. This is unintentional and the practitioner does try to identify and correct these, but some could still be present. Please do not hesitate to contact practitioner for clarification. 06/08/2025 Risk for sexually transmitted disease (ICD-10 - Z72.51) This is to inform you that I have examined our patient and after reviewing all clinically relevant information I find the patient to be medically stable, and is at an acceptable risk and fit to undergo () as mentioned above under anesthesia with its attendant risks. Please review the attached history and physical will help you in the management of this patient Preoperative cardiac risk index risk/Barone LILIAM *0.2% risk of NJ, cardiac arrest or other cardiac events intraoperatively or up to 30 days postop [place] RCI *1.1% 30 day risk of NJ or cardiac arrest Please do not hesitate to further contact me for information or questions 06/08/2025 Encounter for examination of blood pressure with abnormal findings (ICD-10 - Z01.31) This is to inform you that I have examined our patient and after reviewing all clinically relevant information I find the patient to be medically stable, and is at an acceptable risk and fit to undergo () as mentioned above under anesthesia with its attendant risks. Please review the attached history and physical will help you in the management of this patient Preoperative cardiac risk index risk/Barone LILIAM *0.2% risk of NJ, cardiac arrest or other cardiac events intraoperatively or up to 30 days postop [place] RCI *1.1% 30 day risk of NJ or cardiac arrest Please do not hesitate to further contact me for information or questions 06/08/2025 Encounter for screening for cardiovascular disorders (ICD-10 - Z13.6) This is to inform you that I have examined our patient and after reviewing all clinically relevant information I find the patient to be medically stable, and is at an acceptable risk and fit to undergo () as mentioned above under anesthesia with its attendant risks. Please review the attached history and physical will help you in the management of this patient Preoperative cardiac risk index risk/Barone LILIAM *0.2% risk of NJ, cardiac arrest or other cardiac events intraoperatively or up to 30 days postop [place] RCI *1.1% 30 day risk of NJ or cardiac arrest Please do not hesitate to further contact me for information or questions 06/08/2025 Pre-operative clearance (ICD-10 - Z01.818) This is to inform you that I have examined our patient and after reviewing all clinically relevant information I find the patient to be medically stable, and is at an acceptable risk and fit to undergo () as mentioned above under anesthesia with its attendant risks. Please review the attached history and physical will help you in the management of this patient Preoperative cardiac risk index risk/Barone LILIAM *0.2% risk of NJ, cardiac arrest or other cardiac events intraoperatively or up to 30 days postop [place] RCI *1.1% 30 day risk of NJ or cardiac arrest Please do not hesitate to further contact me for information or questions 06/08/2025 Acute anteroseptal myocardial infarction (ICD-10 - I21.09) This is to inform you that I have examined our patient and after reviewing all clinically relevant information I find the patient to be medically stable, and is at an acceptable risk and fit to undergo () as mentioned above under anesthesia with its attendant risks. Please review the attached history and physical will help you in the management of this patient Preoperative cardiac risk index risk/Barone LILIAM *0.2% risk of NJ, cardiac arrest or other cardiac events intraoperatively or up to 30 days postop [place] RCI *1.1% 30 day risk of NJ or cardiac arrest Please do not hesitate to further contact me for information or questions Plan Of Treatment Pending Test Test Name Order Date X ray : Chest with 2 views 06/08/2025 Exercise Treadmill Stress Test (TMST) EKG 06/08/2025 APTT 06/04/2025 SYPHILIS TESTING 06/04/2025 HIV 1 & 2 Ab 06/04/2025 PT/INR 06/04/2025 LIPID PANEL, STANDARD 06/04/2025 COMPREHENSIVE METABOLIC PANEL 06/04/2025 CBC (INCLUDES DIFF/PLT) 06/04/2025 URINALYSIS, COMPLETE 06/04/2025 HEMOGLOBIN A1c 06/04/2025 VITAMIN D,25-OH,TOTAL,IA 06/04/2025 CHLAMYDIA/N. GONORRHOEAE RNA, TMA, UROGE NITAL 06/04/2025 HSV 1 and 2 Ab, [id number] 06/04/2025 TSH+T3+Free T4+T3 Free 06/04/2025 Next Appt Details Provider Name:KATHLEEN CANNON, 07/16/2025 10:45:00 AM, [address], [place], [address], Insurance Providers Payer Name Payer Address Payer Phone Subscriber Number Group Number Insured Name Patient Relationship to Insured Coverage Start Date Coverage End Date [place] [address] [address] [place] [address] [id number] [facility] Self - patient is the insured Medications Administered Medication Instructions Date of Administration Dosage Notes MICC B12 INJECTION 06/30/2024 1 mL MICC B12 INJECTION 07/14/2024 1 mL Tirzepatide 06/23/2024 2.5 mg Tirzepatide 06/30/2024 2.5 mg Tirzepatide 07/06/2024 2.5 mg Tirzepatide 07/14/2024 2.5 mg Tirzepatide 07/22/2024 5 mg Tirzepatide 07/28/2024 5 mg Tirzepatide 08/04/2024 5 mg Tirzepatide 08/11/2024 5 mg Tirzepatide 08/17/2024 5 mg Tirzepatide 08/24/2024 5 mg Medical (General) History Medical History History ICD Code pneumonia Essential (primary) hypertension I10 Seasonal allergies J30.2 Morbid (severe) obesity due to excess ca lories E66.01 Chronic insomnia Surgical History Surgery Date(Month/Year) Lap Band 2012
--- OUTSIDE RECORDS SUMMARY | 2025-06-08 10:51 | XMS_ITS | Encounter Summary ---
Author Organization Located Within [facility] Address [address] [place] [address] Phone Care Team Providers Care Accountant Assistant Name Role Phone Radha Call MD, MPH Primary Care Provid er Reason for Visit * Reason Comments Medication Refill Encounter Details Date Type Department Care Team (Late st Contact Info) Description 05/24/2025 Refill [facility] [place] [facility] [address] [place] [address] Radha Call MD, MPH [address] [place], [place] [id number] [email or web address] Medication Refill Social History Tobacco Use Types [...] high school, GED, job training, learning the Nauruan language, technical skills, or developing parenting skills)? [...] documented as of this encounter Care Teams Accountant Assistant Relationship Specialty Start Date End Date Radha Call MD, MPH [address] [place], [place] [phone] [email or web address] PCP - General Family Medicine 10/30/19 documented as of this encounter Additional Source Comments The information contained in this document represents components of the legal health record. It is not the complete legal health record.Loc[facility]
--- OUTSIDE RECORDS SUMMARY | 2025-06-08 10:51 | XMS_ITS | Clinical Summary ---
Author Organization [facility] Address [address] [place] [phone] Phone Care Team Providers Care Information Engineer Name Role Phone Radha Call MD, MPH [...] Description 05/24/2025 Refill [facility] [place] [facility] [address] [place] [address] Radha Call MD, MPH Medication Refill from [...] high school, GED, job training, learning the Hong Konger language, technical skills, or developing parenting skills)? [...] Most Recently Relevant to Health Maintenance Insurance [email or web address] [place] [address] [email or web address] BENEFITS ADMIN[employer]ATORS [employer]EF[employer]ATORS [employer]EF[employer]MIN[employer]AT[employer]EF[employer]MIN[employer]MIN[employer]AT[employer]EF[employer] Care Teams Information Engineer Relationship Specialty Start Date End Date Radha Call MD, MPH [address] [place] [phone] [email or web address] PCP - General Family Medicine 10/30/19 Additional Source Comments The information contained in this document represents components of the legal health record. It is not the complete legal health record.[facility]
== END 2025-06-08 09:45 | disposition home or self-care (01) ==
LOC: HO.XRAY 09:44
DX: Z01.818 Encounter for other preprocedural examination (principal)
CPT/HCPCS: 71046

== ENCOUNTER → 2025-06-08 09:49 | Outpatient (BNV) | payer OTHER, SELFPAY | PROVIDERS: Visit Provider Radiology Diagnostic Radiology | DX: Z01.818 Encounter for other preprocedural examination (principal) | CPT/HCPCS: 71046 ==

== ENCOUNTER 2025-06-10 08:16 | Outpatient (AMB) | payer OTHER, SELFPAY ==
--- OUTSIDE RECORDS SUMMARY | 2024-09-09 04:15 | XMS_ITS ---
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 Role Phone KATHLEEN CANNON Unavailable [phone] BETITO FRAZIER Unavailable [phone] REASON FOR VISIT 5mg Encounters Encounter Location Date Provider Diagnosis [facility] [address] [place] [address] 09/09/2024 BETITO FRAZIER Plan Of Treatment Next Appt Details Provider Name:KATHLEEN CANNON, 07/16/2025 10:45:00 AM, [address], [place], [address], Progress Notes * Adi MOTADOB:[birth year] (50 yo M)Acc No.[id number]:09/09/2024 Patient: Adi BROOKS Provider: Laurel Frazier MD :1975 A ge:49 Y S ex:Male Date:09/09/2024 Address:[address] [id number] Subjective: * Chief Complaints: * 1 . 5mg. * Medical History: Objective: * Vitals: Assessment: Plan: * Treatment: * Images: Billing Information: * Visit Code: * Procedure Codes: * Electronic signature of KATI FRAZIER MD on 06/10/2025 at 08:34 AM EDT Sign off status: Pending * Provider: Laurel Frazier MD Date: 1 11/10/2023 Generated for Elina Nayakg/Annieitting on: 0 06/10/2025 08:34 AM EDT
--- OUTSIDE RECORDS SUMMARY | 2024-09-15 09:30 | XMS_ITS ---
Author Organization [facility] [address] Address [address] [facility] [place] [address] Care Team Providers Care Scutcher Tender Name Role Phone KATHLEEN CANNON Unavailable [phone] Encounters Encounter Location Date Provider Diagnosis [facility] [address] [place] [address] 09/15/2024 KATHLEEN CANNON Plan Of Treatment Next Appt Details Provider Name:KATHLEEN CANNON, 07/16/2025 10:45:00 AM, [address], [place], [address], Progress Notes * Adi MOTADOB:[birth year] (50 yo M)Acc No.[id number]:09/15/2024 Patient: Adi BROOKS Provider: Chi CANNON PA-C :1975 A ge:49 Y S ex:Male Date:09/15/2024 Address:[address] [place] Subjective: * Chief Complaints: * * Medical History: Objective: * Vitals: Assessment: Plan: * Treatment: * Images: Billing Information: * Visit Code: * Procedure Codes: * Electronic signature of ANNA MARIE CANNON PA-C [id number] on 06/10/2025 at 08:35 AM EDT Sign off status: Pending * Provider: Chi CANNON PA-C Date: 1 11/16/2023 Generated for Elina ac/Faxing/eTransmitting on: 0 06/10/2025 08:35 AM EDT
--- OUTSIDE RECORDS SUMMARY | 2025-06-08 04:00 | XMS_ITS ---
Author Organization [facility] [address] Address [address] [place] [address] Care Team Providers Care Child Care Provider Name Role Phone KATHLEEN CANNON Unavailable [phone] Allergies Allergen (clinical drug ingredient) Drug/Non Drug Allergy documented on EMR Reaction Allergy Type Onset Date Status Non-steroidal anti-inflammatory agent (FN) NSAIDs stomach upset Drug Allergy Active Results Component Value Reference Range Notes EKG (Not yet reviewed by pro vider) Interpretation: Performing Lab: Notes/Report: ECGDiastolicBP 78 ECGDiastolicBP 78 ECGDiastolicBP 78 ECGHr 77 ECGHr 79 ECGHr 83 ECGPRInterval 148 ECGPRInterval 154 ECGPRInterval 152 ECGPWaveAxis 58 ECGPWaveAxis 57 ECGPWaveAxis 60 ECGQRSDuration 94 ECGQRSDuration 92 ECGQRSDuration 90 ECGQrsWaveAxis 46 ECGQrsWaveAxis 47 ECGQrsWaveAxis 47 ECGQTcInterval 385 ECGQTcInterval 385 ECGQTcInterval 388 ECGQTInterval 356 ECGQTInterval 352 ECGQTInterval 348 ECGSystolicBP 114 ECGSystolicBP 114 ECGSystolicBP 114 ECGTWaveAxis 37 ECGTWaveAxis 37 ECGTWaveAxis 38 RR_DiastolicBP 0 RR_DiastolicBP 0 RR_DiastolicBP 0 RR_MaxRRInterval 0 RR_MaxRRInterval 0 RR_MaxRRInterval 0 RR_MeanHR 0 RR_MeanHR 0 RR_MeanHR 0 RR_MeanRRInterval 0 RR_MeanRRInterval 0 RR_MeanRRInterval 0 RR_MinRRInterval 0 RR_MinRRInterval 0 RR_MinRRInterval 0 RR_NumBeats 0 RR_NumBeats 0 RR_NumBeats 0 RR_NumNormalBeats 0 RR_NumNormalBeats 0 RR_NumNormalBeats 0 RR_SystolicBP 0 RR_SystolicBP 0 RR_SystolicBP 0 EKG (Not yet reviewed by pro vider) Interpretation: Performing Lab: Notes/Report: ECGDiastolicBP 78 ECGDiastolicBP 78 ECGDiastolicBP 78 ECGHr 77 ECGHr 79 ECGHr 83 ECGPRInterval 148 ECGPRInterval 154 ECGPRInterval 152 ECGPWaveAxis 58 ECGPWaveAxis 57 ECGPWaveAxis 60 ECGQRSDuration 94 ECGQRSDuration 92 ECGQRSDuration 90 ECGQrsWaveAxis 46 ECGQrsWaveAxis 47 ECGQrsWaveAxis 47 ECGQTcInterval 385 ECGQTcInterval 385 ECGQTcInterval 388 ECGQTInterval 356 ECGQTInterval 352 ECGQTInterval 348 ECGSystolicBP 114 ECGSystolicBP 114 ECGSystolicBP 114 ECGTWaveAxis 37 ECGTWaveAxis 37 ECGTWaveAxis 38 RR_DiastolicBP 0 RR_DiastolicBP 0 RR_DiastolicBP 0 RR_MaxRRInterval 0 RR_MaxRRInterval 0 RR_MaxRRInterval 0 RR_MeanHR 0 RR_MeanHR 0 RR_MeanHR 0 RR_MeanRRInterval 0 RR_MeanRRInterval 0 RR_MeanRRInterval 0 RR_MinRRInterval 0 RR_MinRRInterval 0 RR_MinRRInterval 0 RR_NumBeats 0 RR_NumBeats 0 RR_NumBeats 0 RR_NumNormalBeats 0 RR_NumNormalBeats 0 RR_NumNormalBeats 0 RR_SystolicBP 0 RR_SystolicBP 0 RR_SystolicBP 0 EKG (Not yet reviewed by pro vider) Interpretation: Performing Lab: Notes/Report: ECGDiastolicBP 78 ECGDiastolicBP 78 ECGDiastolicBP 78 ECGHr 77 ECGHr 79 ECGHr 83 ECGPRInterval 148 ECGPRInterval 154 ECGPRInterval 152 ECGPWaveAxis 58 ECGPWaveAxis 57 ECGPWaveAxis 60 ECGQRSDuration 94 ECGQRSDuration 92 ECGQRSDuration 90 ECGQrsWaveAxis 46 ECGQrsWaveAxis 47 ECGQrsWaveAxis 47 ECGQTcInterval 385 ECGQTcInterval 385 ECGQTcInterval 388 ECGQTInterval 356 ECGQTInterval 352 ECGQTInterval 348 ECGSystolicBP 114 ECGSystolicBP 114 ECGSystolicBP 114 ECGTWaveAxis 37 ECGTWaveAxis 37 ECGTWaveAxis 38 RR_DiastolicBP 0 RR_DiastolicBP 0 RR_DiastolicBP 0 RR_MaxRRInterval 0 RR_MaxRRInterval 0 RR_MaxRRInterval 0 RR_MeanHR 0 RR_MeanHR 0 RR_MeanHR 0 RR_MeanRRInterval 0 RR_MeanRRInterval 0 RR_MeanRRInterval 0 RR_MinRRInterval 0 RR_MinRRInterval 0 RR_MinRRInterval 0 RR_NumBeats 0 RR_NumBeats 0 RR_NumBeats 0 RR_NumNormalBeats 0 RR_NumNormalBeats 0 RR_NumNormalBeats 0 RR_SystolicBP 0 RR_SystolicBP 0 RR_SystolicBP 0 REASON FOR VISIT pt is here for pre op visit on cosmetic tummy tuck Medications Medication SIG (Take, Route, Fr equency, Duration) Notes Start Date End Date Status Multi For Him - as directed Orally Active Mirtazapine 15 MG 1 tablet at bedtime Orally Once a day Active Vitamin D3 Active Social History Tobacco Use: Social History Observation Description Date Details (start date - stop date) Never Smoker NA - NA Tobacco Use/Smoking Question Answer Notes Are you a nonsmoker Section Notes: Ocassional alcohol consumption Rare marijuana edible use for sleep Vital Signs Blood pressure systolic 114 mm Hg 06/08/20 25 Blood pressure diastolic 78 mm Hg 025 Heart Rate 81 /min 06/08/2025 Height 70 in 06/08/2025 Weight 187.8 lbs 06/08/2025 BMI 26.94 kg/m2 06/08/2025 Oximetry 99 % 06/08/2025 Encounters Encounter Location Date Provider Diagnosis [facility] [address] [place] [address] 06/08/2025 KATHLEEN CANNON BMI 26.0-26.9,adult Z68.26 ; Pre-operative clearance Z01.818 ; Essential hypertension I10 ; Chronic insomnia F51.04 ; Encounter for screening for cardiovascular disorders Z13.6 ; 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 and Encounter for examination of blood pressure without abnormal findings Z01.30 Assessments Encounter Date Diagnosis (ICD Code) Assessment Notes Treatment Notes Treatment Clinical Notes Section Notes 06/08/2025 BMI 26.0-26.9,adult (ICD-10 - Z68.26) This is to inform you that I have examined our patient and after reviewing all clinically relevant information I find the patient to be medically stable, and is at an acceptable risk and fit to undergo belt lipectomy as mentioned above under anesthesia with its attendant risks. Please review the attached history and physical will help you in the management of this patient Preoperative cardiac risk index risk/Barone LILIAM *0.2% risk of ID, cardiac arrest or other cardiac events intraoperatively or up to 30 days postop [place] [facility] *1.1% 30 day risk of ID or cardiac arrest Please do not hesitate to further contact me for information or questions Adi is a pleasant 50-year-old male present today for preop clearance. #Patient scheduled for belt lipectomy on 06/21/2025 at [facility] with Dr. Manuel Escudero. # Labs reviewed and unremarkable. Will fax. # Chest xray required: ordered and pending today. # Abnormal EKG: performed revealing normal sinus rhythm however old anteroseptal infarct. This EKG was repeated 3 times. Patient denies any current or past history of chest pain, shortness of breath, palpitations, vision changes, fatigue, weakness or syncope. No previous EKG for comparison. Will refer to cardiology for nuclear stress test. Clearance pending cardiology clearance # Elevated BMI: Has lost significant weight in the past year with Zepbound from online prescriber. Focusing on lifestyle. Currently off of Zepbound. Will continue to monitor. # Hypertension: Blood pressure stable. BP of 114/78. No hypertensive therapy. # Insomnia: taking mirtazapine as needed. # Schedued for CPE in 1 month. All questions answered to patients satisfaction. Patient verbalized understanding of diagnosis and treatments explained. To call sooner prior to next visit it any questions/concerns arise. Case discussed with collaborating physician Dr. Frazier who reviewed the assessment and plan. Chart, medications, labs, vital signs reviewed. Dictation was accomplished with the use of Tap2print voice recognition software, prone to medical misidentifications and grammatical errors. This is unintentional and the practitioner does try to identify and correct these, but some could still be present. Please do not hesitate to contact practitioner for clarification. 06/08/2025 Pre-operative clearance (ICD-10 - Z01.818) This is to inform you that I have examined our patient and after reviewing all clinically relevant information I find the patient to be medically stable, and is at an acceptable risk and fit to undergo belt lipectomy as mentioned above under anesthesia with its attendant risks. Please review the attached history and physical will help you in the management of this patient Preoperative cardiac risk index risk/Barone LILIAM *0.2% risk of ID, cardiac arrest or other cardiac events intraoperatively or up to 30 days postop [place] [facility] *1.1% 30 day risk of ID or cardiac arrest Please do not hesitate to further contact me for information or questions Adi is a pleasant 50-year-old male present today for preop clearance. #Patient scheduled for belt lipectomy on 06/21/2025 at [facility] with Dr. Manuel Escudero. # Labs reviewed and unremarkable. Will fax. # Chest xray required: ordered and pending today. # Abnormal EKG: performed revealing normal sinus rhythm however old anteroseptal infarct. This EKG was repeated 3 times. Patient denies any current or past history of chest pain, shortness of breath, palpitations, vision changes, fatigue, weakness or syncope. No previous EKG for comparison. Will refer to cardiology for nuclear stress test. Clearance pending cardiology clearance # Elevated BMI: Has lost significant weight in the past year with Zepbound from online prescriber. Focusing on lifestyle. Currently off of Zepbound. Will continue to monitor. # Hypertension: Blood pressure stable. BP of 114/78. No hypertensive therapy. # Insomnia: taking mirtazapine as needed. # [facility]dued for CPE in 1 month. All questions answered to patients satisfaction. Patient verbalized understanding of diagnosis and treatments explained. To call sooner prior to next visit it any questions/concerns arise. Case discussed with collaborating physician Dr. Frazier who reviewed the assessment and plan. Chart, medications, labs, vital signs reviewed. Dictation was accomplished with the use of Tap2print voice recognition software, prone to medical misidentifications and grammatical errors. This is unintentional and the practitioner does try to identify and correct these, but some could still be present. Please do not hesitate to contact practitioner for clarification. 06/08/2025 Essential hypertension (ICD-10 - I10) This is to inform you that I have examined our patient and after reviewing all clinically relevant information I find the patient to be medically stable, and is at an acceptable risk and fit to undergo belt lipectomy as mentioned above under anesthesia with its attendant risks. Please review the attached history and physical will help you in the management of this patient Preoperative cardiac risk index risk/Barone LILIAM *0.2% risk of ID, cardiac arrest or other cardiac events intraoperatively or up to 30 days postop [place] [facility] *1.1% 30 day risk of ID or cardiac arrest Please do not hesitate to further contact me for information or questions Adi is a pleasant 50-year-old male present today for preop clearance. #Patient scheduled for belt lipectomy on 06/21/2025 at [facility] with Dr. Manuel Escudero. # Labs reviewed and unremarkable. Will fax. # Chest xray required: ordered and pending today. # Abnormal EKG: performed revealing normal sinus rhythm however old anteroseptal infarct. This EKG was repeated 3 times. Patient denies any current or past history of chest pain, shortness of breath, palpitations, vision changes, fatigue, weakness or syncope. No previous EKG for comparison. Will refer to cardiology for nuclear stress test. Clearance pending cardiology clearance # Elevated BMI: Has lost significant weight in the past year with Zepbound from online prescriber. Focusing on lifestyle. Currently off of Zepbound. Will continue to monitor. # Hypertension: Blood pressure stable. BP of 114/78. No hypertensive therapy. # Insomnia: taking mirtazapine as needed. # [facility]dued for CPE in 1 month. All questions answered to patients satisfaction. Patient verbalized understanding of diagnosis and treatments explained. To call sooner prior to next visit it any questions/concerns arise. Case discussed with collaborating physician Dr. Frazier who reviewed the assessment and plan. Chart, medications, labs, vital signs reviewed. Dictation was accomplished with the use of Tap2print voice recognition software, prone to medical misidentifications and grammatical errors. This is unintentional and the practitioner does try to identify and correct these, but some could still be present. Please do not hesitate to contact practitioner for clarification. 06/08/2025 Chronic insomnia (ICD-10 - F51.04) This is to inform you that I have examined our patient and after reviewing all clinically relevant information I find the patient to be medically stable, and is at an acceptable risk and fit to undergo belt lipectomy as mentioned above under anesthesia with its attendant risks. Please review the attached history and physical will help you in the management of this patient Preoperative cardiac risk index risk/Barone LILIAM *0.2% risk of ID, cardiac arrest or other cardiac events intraoperatively or up to 30 days postop [place] [facility] *1.1% 30 day risk of ID or cardiac arrest Please do not hesitate to further contact me for information or questions Adi is a pleasant 50-year-old male present today for preop clearance. #Patient scheduled for belt lipectomy on 06/21/2025 at [facility] with Dr. Manuel Escudero. # Labs reviewed and unremarkable. Will fax. # Chest xray required: ordered and pending today. # Abnormal EKG: performed revealing normal sinus rhythm however old anteroseptal infarct. This EKG was repeated 3 times. Patient denies any current or past history of chest pain, shortness of breath, palpitations, vision changes, fatigue, weakness or syncope. No previous EKG for comparison. Will refer to cardiology for nuclear stress test. Clearance pending cardiology clearance # Elevated BMI: Has lost significant weight in the past year with Zepbound from online prescriber. Focusing on lifestyle. Currently off of Zepbound. Will continue to monitor. # Hypertension: Blood pressure stable. BP of 114/78. No hypertensive therapy. # Insomnia: taking mirtazapine as needed. # Schedued for CPE in 1 month. All questions answered to patients satisfaction. Patient verbalized understanding of diagnosis and treatments explained. To call sooner prior to next visit it any questions/concerns arise. Case discussed with collaborating physician Dr. Frazier who reviewed the assessment and plan. Chart, medications, labs, vital signs reviewed. Dictation was accomplished with the use of Tap2print voice recognition software, prone to medical misidentifications and grammatical errors. This is unintentional and the practitioner does try to identify and correct these, but some could still be present. Please do not hesitate to contact practitioner for clarification. 06/08/2025 Encounter for screening for cardiovascular disorders (ICD-10 - Z13.6) This is to inform you that I have examined our patient and after reviewing all clinically relevant information I find the patient to be medically stable, and is at an acceptable risk and fit to undergo belt lipectomy as mentioned above under anesthesia with its attendant risks. Please review the attached history and physical will help you in the management of this patient Preoperative cardiac risk index risk/Barone LILIAM *0.2% risk of ID, cardiac arrest or other cardiac events intraoperatively or up to 30 days postop [place] [facility] *1.1% 30 day risk of ID or cardiac arrest Please do not hesitate to further contact me for information or questions Adi is a pleasant 50-year-old male present today for preop clearance. #Patient scheduled for belt lipectomy on 06/21/2025 at [facility] with Dr. Manuel Escudero. # Labs reviewed and unremarkable. Will fax. # Chest xray required: ordered and pending today. # Abnormal EKG: performed revealing normal sinus rhythm however old anteroseptal infarct. This EKG was repeated 3 times. Patient denies any current or past history of chest pain, shortness of breath, palpitations, vision changes, fatigue, weakness or syncope. No previous EKG for comparison. Will refer to cardiology for nuclear stress test. Clearance pending cardiology clearance # Elevated BMI: Has lost significant weight in the past year with Zepbound from online prescriber. Focusing on lifestyle. Currently off of Zepbound. Will continue to monitor. # Hypertension: Blood pressure stable. BP of 114/78. No hypertensive therapy. # Insomnia: taking mirtazapine as needed. # [facility]dued for CPE in 1 month. All questions answered to patients satisfaction. Patient verbalized understanding of diagnosis and treatments explained. To call sooner prior to next visit it any questions/concerns arise. Case discussed with collaborating physician Dr. Frazier who reviewed the assessment and plan. Chart, medications, labs, vital signs reviewed. Dictation was accomplished with the use of Tap2print voice recognition software, prone to medical misidentifications and grammatical errors. This is unintentional and the practitioner does try to identify and correct these, but some could still be present. Please do not hesitate to contact practitioner for clarification. 06/08/2025 Old anteroseptal myocardial infarction (ICD-10 - I25.2) This is to inform you that I have examined our patient and after reviewing all clinically relevant information I find the patient to be medically stable, and is at an acceptable risk and fit to undergo belt lipectomy as mentioned above under anesthesia with its attendant risks. Please review the attached history and physical will help you in the management of this patient Preoperative cardiac risk index risk/Barone LILIAM *0.2% risk of ID, cardiac arrest or other cardiac events intraoperatively or up to 30 days postop [place] [facility] *1.1% 30 day risk of ID or cardiac arrest Please do not hesitate to further contact me for information or questions Adi is a pleasant 50-year-old male present today for preop clearance. #Patient scheduled for belt lipectomy on 06/21/2025 at [facility] with Dr. Manuel Escudero. # Labs reviewed and unremarkable. Will fax. # Chest xray required: ordered and pending today. # Abnormal EKG: performed revealing normal sinus rhythm however old anteroseptal infarct. This EKG was repeated 3 times. Patient denies any current or past history of chest pain, shortness of breath, palpitations, vision changes, fatigue, weakness or syncope. No previous EKG for comparison. Will refer to cardiology for nuclear stress test. Clearance pending cardiology clearance # Elevated BMI: Has lost significant weight in the past year with Zepbound from online prescriber. Focusing on lifestyle. Currently off of Zepbound. Will continue to monitor. # Hypertension: Blood pressure stable. BP of 114/78. No hypertensive therapy. # Insomnia: taking mirtazapine as needed. # [facility]dued for CPE in 1 month. All questions answered to patients satisfaction. Patient verbalized understanding of diagnosis and treatments explained. To call sooner prior to next visit it any questions/concerns arise. Case discussed with collaborating physician Dr. Frazier who reviewed the assessment and plan. Chart, medications, labs, vital signs reviewed. Dictation was accomplished with the use of Tap2print voice recognition software, prone to medical misidentifications and grammatical errors. This is unintentional and the practitioner does try to identify and correct these, but some could still be present. Please do not hesitate to contact practitioner for clarification. 06/08/2025 Encounter for examination of blood pressure without abnormal findings (ICD-10 - Z01.30) This is to inform you that I have examined our patient and after reviewing all clinically relevant information I find the patient to be medically stable, and is at an acceptable risk and fit to undergo belt lipectomy as mentioned above under anesthesia with its attendant risks. Please review the attached history and physical will help you in the management of this patient Preoperative cardiac risk index risk/Barone LILIAM *0.2% risk of ID, cardiac arrest or other cardiac events intraoperatively or up to 30 days postop [place] [facility] *1.1% 30 day risk of ID or cardiac arrest Please do not hesitate to further contact me for information or questions Adi is a pleasant 50-year-old male present today for preop clearance. #Patient scheduled for belt lipectomy on 06/21/2025 at [facility] with Dr. Manuel Escudero. # Labs reviewed and unremarkable. Will fax. # Chest xray required: ordered and pending today. # Abnormal EKG: performed revealing normal sinus rhythm however old anteroseptal infarct. This EKG was repeated 3 times. Patient denies any current or past history of chest pain, shortness of breath, palpitations, vision changes, fatigue, weakness or syncope. No previous EKG for comparison. Will refer to cardiology for nuclear stress test. Clearance pending cardiology clearance # Elevated BMI: Has lost significant weight in the past year with Zepbound from online prescriber. Focusing on lifestyle. Currently off of Zepbound. Will continue to monitor. # Hypertension: Blood pressure stable. BP of 114/78. No hypertensive therapy. # Insomnia: taking mirtazapine as needed. # [facility] for CPE in 1 month. All questions answered to patients satisfaction. Patient verbalized understanding of diagnosis and treatments explained. To call sooner prior to next visit it any questions/concerns arise. Case discussed with collaborating physician Dr. Frazier who reviewed the assessment and plan. Chart, medications, labs, vital signs reviewed. Dictation was accomplished with the use of Tap2print voice recognition software, prone to medical misidentifications and grammatical errors. This is unintentional and the practitioner does try to identify and correct these, but some could still be present. Please do not hesitate to contact practitioner for clarification. Plan Of Treatment Pending Test Test Name Order Date X ray : Chest with 2 views 06/08/2025 Exercise Treadmill Stress Test (TMST) EKG 06/08/2025 Next Appt Details Provider Name:KATHLEEN CANNON, 07/16/2025 10:45:00 AM, [address] [facility], [place], [address], Progress Notes * Adi OMTADOB:[birth year] (50 yo M)Acc No.[id number]:06/08/2025 Progress Note Patient: Adi BROOKS Provider: Chi CANNON PA-C :1975 A ge:50 Y S ex:Male Date:06/08/2025 Address:[address] [place], [place] [id number] Subjective: * Chief Complaints: * 1 . Pt is here for pre op visit on cosmetic tumrei diaz. * HPI: C onstitutional: Adi is a pleasant 50-year-old male present today for preop visit. Past medical history of pneumonia, hypertension, seasonal allergies, obesity and chronic insomnia. Patient recently established primary care here in office 06/04/2025. Undergoing belt lipectomy surgery at [facility] with Dr. Manuel Escudero on 05/24/2025. Patient has reliable transportation to and from the surgery center. Patient overall eats a well-balanced diet and exercises routinely. Has had a drastic weight loss in the past year from 261 lbs down to 186 lbs. Has been on Zepbound through online prescriber. Has since tapered off of this medication. Patient reports rare alcohol consumption, denies any tobacco, marijuana or other drug use. Labs ordered at new patient visit pertaining to the surgery including PT/INR, a- PTT, HIV 1/HIV-2 antibody and antigen screening, A1c, thyroid, urinalysis, CBC, CMP. EKG obtained today. Reveals normal sinus rhythm however old anteroseptal infarct. This EKG was repeated 3 times. Patient denies any current or past history of chest pain, shortness of breath, palpitations, vision changes, fatigue, weakness or syncope. No previous EKG for comparison. Ordering chest x-ray prior to clearance. Patient overall doing well with no concerns today. * ROS: C onstitutional: Patient denies any [...] at bedtime Orally Once a day , Medication List reviewed and reconciled with the patient * Allergies: N SAIDs: stomach upset. Objective: * Vitals: H R:81/min, BP:114/78mm Hg, Wt:187.8lbs, BMI:26.94Index, Ht: 70 in, Oxygen sat %:99%. * Physical Examination: G eneral: Age appropriate male, well appearing, no acute distress, speaking in full sentences without respiratory compromise. Well groomed, well developed. Alert, Interactive. Skin: Warm, dry and intact. HEENT: Normocephalic/atraumatic. Neck/Thyroid: Supple. Full ROM. Lung: Clear to auscultation bilaterally, no wheezes, rales or rhonchi. No barrel chest. Equal chest rise and fall bilaterally. Cardiac: S1 and S2 appreciated. No murmurs/rubs or gallops. Abdomen: Soft, nontender, normoactive bowel sounds. No rebound/guarding. No CVA tenderness. No Masses. Neuro: CN II-XI grossly intact. Steady gait with ambulation observed. Symmetric reflexes. Psych: Stable mood and affect. Assessment: * Assessment: 1. P re-operative clearance - Z01.818 (Primary) 2 . B ID 26.0-26.9,adult - Z68.26 3 . E ssential hypertension - I10 4 . C hronic insomnia - F51.04 5 . E ncounter for screening for cardiovascular disorders - Z13.6 6. O ld anteroseptal myocardial infarction - I25.2 7 . E ncounter for examination of blood pressure without abnormal findings - Z01.30 This is to inform you that I have examined our patient and after reviewing all clinically relevant information I find the patient to be medically stable, and is at an acceptable risk and fit to undergo belt lipectomy as mentioned above under anesthesia with its attendant risks. Please review the attached history and physical will help you in the management of this patient Preoperative cardiac risk index risk/Barone LILIAM *0.2% risk of ID, cardiac arrest or other cardiac events intraoperatively or up to 30 days postop [place] [facility] *1.1% 30 day risk of ID or cardiac arrest Please do not hesitate to further contact me for information or questions Adi is a pleasant 50-year-old male present today for preop clearance. #Patient scheduled for belt lipectomy on 06/21/2025 at [facility] with Dr. Manuel Escudero. # Labs reviewed and unremarkable. Will fax. # Chest xray required: ordered and pending today. # Abnormal EKG: performed revealing normal sinus rhythm however old anteroseptal infarct. This EKG was repeated 3 times. Patient denies any current or past history of chest pain, shortness of breath, palpitations, vision changes, fatigue, weakness or syncope. No previous EKG for comparison. Will refer to cardiology for nuclear stress test. Clearance pending cardiology clearance # Elevated BMI: Has lost significant weight in the past year with Zepbound from online prescriber. Focusing on lifestyle. Currently off of Zepbound. Will continue to monitor. # Hypertension: Blood pressure stable. BP of 114/78. No hypertensive therapy. # Insomnia: taking mirtazapine as needed. # [place] for CPE in 1 month. All questions answered to patients satisfaction. Patient verbalized understanding of diagnosis and treatments explained. To call sooner prior to next visit it any questions/concerns arise. Case discussed with collaborating physician Dr. Frazier who reviewed the assessment and plan. Chart, medications, labs, vital signs reviewed. Dictation was accomplished with the use of [employer] voice recognition software, prone to medical misidentifications and grammatical errors. This is unintentional and the practitioner does try to identify and correct these, but some could still be present. Please do not hesitate to contact practitioner for clarification. Plan: * Treatment: 2. E ncounter for screening for cardiovascular disorders I maging: EKG * Imaging: * I maging: Exercise Treadmill Stress Test (TMST) * Procedure Codes: 3 074F SYST BP LT 130 MM HG, 3078F DIAST BP < 80 MM HG, 09440 -ELECTROCARDIOGRAM, COMPLETE, Modifiers: 59 * Images: Billing Information: * Visit Code: 93451 Office Visit, Est Pt., Level 4. Modifiers: SA * Procedure Codes: 3074F SYST BP LT 130 MM HG. 3078F DIAST BP < 80 MM HG. 12353 -ELECTROCARDIOGRAM, COMPLETE. Modifiers: 59 * Sign off status: Completed true * Provider: Chi CANNON PA-C Date: 0 06/08/2025 Generated for Elina ac/Vladimir/Manuelransmitting on: 0 06/10/2025 08:34 AM EDT History and Physical Notes * HPI (History of Present Illness) Category Sub-Category Detail Notes Category Not es Constitutional Adi is a pleasant 50-year-old male present today for preop visit. Past medical history of pneumonia, hypertension, seasonal allergies, obesity and chronic insomnia. Patient recently established primary care here in office 06/04/2025. Undergoing belt lipectomy surgery at [facility] with Dr. Manuel Escudero on 05/24/2025. Patient has reliable transportation to and from the surgery center. Patient overall eats a well-balanced diet and exercises routinely. Has had a drastic weight loss in the past year from 261 lbs down to 186 lbs. Has been on Zepbound through online prescriber. Has since tapered off of this medication. Patient reports rare alcohol consumption, denies any tobacco, marijuana or other drug use. Labs ordered at new patient visit pertaining to the surgery including PT/INR, a-PTT, HIV 1/HIV-2 antibody and antigen screening, A1c, thyroid, urinalysis, CBC, CMP. EKG obtained today. Reveals normal sinus rhythm however old anteroseptal infarct. This EKG was repeated 3 times. Patient denies any current or past history of chest pain, shortness of breath, palpitations, vision changes, fatigue, weakness or syncope. No previous EKG for comparison. Ordering chest x-ray prior to clearance. Patient overall doing well with no concerns today. Physical Examination Category Sub-Category Detail Notes Section [...] and S2 appreciated. No murmurs/rubs or gallops. Abdomen: Soft, nontender, normoactive bowel sounds. No rebound/guarding. No CVA tenderness. No Masses. Neuro: CN II-XI grossly intact. Steady gait with ambulation observed. Symmetric reflexes. Psych: Stable mood and affect.
--- OUTSIDE RECORDS SUMMARY | 2025-06-08 07:37 | XMS_ITS ---
Author Organization [facility] [address] Address [address] [facility] [place] [address] Care Team Providers [employer] Dr[employer] Operator Helper Name Role Phone KATHLEEN CANNON Unavailable [phone] Reason For Referral Reason nuclear stress test evaluate and treat Diagnosis 1 Abnormal result of o ther cardiovascular function study (R94.39) Diagnosis 2 Abnormal EKG (R94.31 ) Referral Organization [facility] [address] Referring Provider First Name KATHLEEN Referring Provider Last Name KASSANDRA Referring Provider Speciality Internal M edicine Referred Provider Specialty Cardiology General Notes Isha Martinez 11:47:34 AM > referral sent to [facility] per pts request. f) [phone] p) [phone] Referral Priority Routine Encounters Encounter Location Date Provider Diagnosis [facility] [address] [place] [address] 06/08/2025 KATHLEEN CANNON Plan Of Treatment Referrals Referral Date Details 06/08/2025 06/08/2025, nuclear stress test evaluate and treat Next Appt Details Provider Name:KATHLEEN CANNON, 07/16/2025 10:45:00 AM, [address], [place], [address], Progress Notes * Adi MOT[birth year]OB:[birth year] (50 yo M)Acc No.[id number]:06/08/2025 Patient: Adi BROOKS :1975 A ge:50 Y S ex:Male Address:[address] [place] [address], [place] [address] Subjective: * Chief Complaints: * * Medical History: * Surgical History: * Hospitalization/Major Diagno stic Procedure: * Medications: Objective: * Vitals: * Physical Examination: Assessment: Plan: * Treatment: * Procedure Codes: * true * Date: Generated for Elina ac/Vladimir/Annieitting on: 0 06/10/2025 08:35 AM EDT Consultation Request Notes Referral Date Referring Provider Referred Provider Not 06/08/2025 KATHLEEN CANNON , nuclear stress test evaluate and treat
--- NOTE | 2025-06-10 08:23 | A.OFFVIS_ITS ---
Vital Signs 06/10/25 08:24 Height 5 ft 11 in Weight 186 lb 15.232 oz BMI 26.1 BP 122/80 Blood Pressure Location Lt brachial Position Sitting Pulse 96 Pulse Source Monitor Intake Visit Reasons: Preop/Kyra Patsy/ abn ekg Intake Note: PREOP Accompanied by: Spouse Allergies nsaids Allergy (Unknown, Uncoded 05/04/19 00:00) HPI Comments Details: Thank you for referring Adi in cardiology consultation today for preoperative cardiovascular risk stratification prior to cosmetic surgery to be done under general anesthesia in [place]. The patient had seen you and at that time he had EKG that was suggestive of possibly old septal/anterior myocardial infarction and was referred here for further evaluation. Patient says over the last year or so he has lost about 100 lb doing GLP 1 antagonist which he was paying out of pocket. Says since then he has also been picking up his exercise and is doing high-level of exercise building muscle mass as well as doing aerobic exercise. He has had again do an hour of exercise including aerobic exercise walking few miles without having any symptoms. He has not had any symptoms of exertional chest pain or shortness of breath. He said his energy level is the best it has been in many years. He has no other heart failure symptoms. Denies any palpitations, lightheadedness, syncope. He comes in today and his EKG again confirms possible old septal infarct. He currently does not take any medications. His lipids are well optimized. He has no family history for premature coronary artery disease. He does not recall ever having any prolonged chest pain or prior cardiovascular events. [facility] Surgical History Hx of laparoscopic gastric banding Social History Alcohol intake: current Alcohol intake frequency: holidays/special occasions only Patient Tobacco Use Status: Never used Tobacco Review of Systems Const Denies chills, Denies daytime sleepiness, Denies fatigue, Denies fever(s), Denies poor appetite, Denies snoring, Denies stops breathing during sleep, Denies weight gain and Denies weight loss Eyes Denies loss of vision Card Denies chest pain, Denies claudication, Denies leg edema, Denies lightheadedness, Denies palpitations, Denies dyspnea, Denies dyspnea on exertion and Denies orthopnea Resp Denies cough, Denies excessive phlegm production, Denies pain with cough, Denies dyspnea, Denies dyspnea on exertion, Denies snoring, Denies wheezing and Denies other GI Denies abdominal pain, Denies hematochezia, Denies change in bowel habits, Denies nausea and Denies vomiting Denies dysuria and Denies urinary frequency Musc Denies arthralgias and Denies muscle weakness Skin/Breast Denies nail changes and Denies rash Neuro Denies loss of vision and Denies memory loss Psych Denies depression, Reports difficulty concentrating, Denies auditory hallucinations and Denies memory loss Endo Denies fatigue and Denies palpitations Jose Enrique/Lymph Denies easy bruising Aller/Immun Denies wheezing Physical Exam Vital Signs: Last Vital Signs Pulse 96 06/10/25 08:24 BP 122/80 06/10/25 08:24 BMI result Body Mass Index 26.1 Const General: cooperative, comfortable, no acute distress, well developed, alert, awake and Physically active Nutritional Appearance: well nourished Orientation/consciousness: patient oriented x3 Limitations: no limitations HEENT Head: Yes normocephalic and Yes atraumatic Neck Neck: Yes trachea midline, Yes supple and Yes no JVD Resp Effort & Inspection: normal respiratory effort Auscultation: clear to auscultation bilaterally Cardio Jugular venous distension: no JVD Palpation: normal PMI Rate: regular rate Rhythm: regular rhythm Heart sounds: S1 normal heart sound present, S2 normal heart sound present, no click, no gallops, no murmurs and no rubs GI Auscultation: normal bowel sounds Skin General skin exam: no rashes or lesions noted Neuro General: patient oriented x3 and no focal motor deficits Extrem General: Yes no clubbing, cyanosis or edema Psych Appearance: grossly normal Office Procedures EKG Details: EKG shows normal sinus rhythm with septal infarct pattern [id number], Complete Assessment & Plan Assessment & Plan (1) Preoperative cardiovascular examination: Code(s): Z01.810 - Encounter for preprocedural cardiovascular examination Plan: Preoperative cardiovascular risk stratification this middle-aged man with no cardiovascular symptoms at high workload. He is to undergo elective cosmetic surgery of skin removal from his abdominal wall under general anesthesia. This is considered intermediate risk surgery. Given his excellent functional status and no symptoms, he is currently well optimized to undergo this surgery with low risk for perioperative cardiovascular morbidity mortality. Rationale for cardiovascular evaluation prior to the surgery was discussed with him. He understands and agrees. No further workup is indicated from this perspective. (2) Abnormal EKG: Code(s): R94.31 - Abnormal electrocardiogram [ECG] [EKG] Plan: Abnormal EKG which is suggestive of old septal infarct. We discussed about varices of diagnose in all infarct especially septal infarct base of the EKG. Often this could be false-positive. This was discussed with him. Does not recall having prior any symptoms of cardiovascular events. Would suggest an echocardiogram to evaluate for cardiac structure and function to evaluate for wall motion abnormality that will rule out any prior myocardial infarction. This was discussed with him. He is agreeable to pursue this in the near future. Will follow up in the clinic if need be. Thank you for allowing me to partake in his care Coding Level of Care Code New Pt Level 4 (47287) Complex EM visit Add On G2211 Diagnoses Preoperative cardiovascular examination Z01.810 Abnormal EKG R94.31 CPT Codes EKG - CPT: 88417-[id number], Complete ([id number])
[2025-06-10 08:24] VITALS: BP 122/80; PULSE 96; BMI 26.1
--- OUTSIDE RECORDS SUMMARY | 2025-06-10 08:35 | XMS_ITS | Patient Health Record ---
[facility] Address [address] [place] [address] Care Team Providers Care Ice Cream Server Name Role Phone KATHLEEN CANNON Unavailable [phone] DARNELL FRAZIER Unavailable [phone] Allergies Allergen (clinical drug ingredient) Drug/Non Drug [...] RR_SystolicBP 0 RR_SystolicBP 0 Reason For Referral Reason nuclear stress test evaluate and treat Diagnosis 1 Abnormal result of o ther cardiovascular function study (R94.39) Diagnosis 2 Abnormal EKG (R94.31 ) Referral Organization [facility] Referring Provider First Name KATHLEEN Referring Provider Last Name KASSANDRA Referring Provider Speciality Internal M edicine Referred Provider Specialty Cardiology General Notes Isha Martinez 11:47:34 AM > referral sent to [facility] per pts request. f) [phone] p) [phone] Referral Priority Routine Medications Medication SIG (Take, Route, Fr equency, [...] Status Risk Notes Problem Abnormal blood pressure (99568295) Encounter for examination of blood pressure with abnormal findings (Z01.31) Active confirmed Problem Essential hypertension (34765875) Essential hypertension (I10) Active confirmed Problem Seasonal allergy (115730440) Seasonal allergies (J30.2) Active confirmed Problem Vitamin D deficiency (50950324) Vitamin D deficiency (E55.9) Active confirmed Problem Body mass index 40+ - morbidly obese (456527683) BMI 40.0-44.9, adult (Z68.41) Active confirmed Problem Obesity (817228259) Obesity (BMI 30-39.9) (E66.9) Active confirmed Problem Obese class II (818568702537482 ) BMI 37.0-37.9, adult (Z68.37) Active confirmed Problem Morbid obesity (516164381) Severe obesity (BMI >= 40) (E66.01) Active confirmed Problem Acute anteroseptal myocardial infarction (48251512) Acute anteroseptal myocardial infarction (I21.09) Active confirmed Problem Chronic insomnia (850402310) Chronic insomnia (F51.04) Active confirmed Vital Signs Heart Rate 81 /min 06/08/2025 Oximetry 99 % 06/08/2025 Blood pressure diastolic 78 mm Hg 06/08/2025 Height 70 in 06/08/2025 Blood pressure systolic 114 mm Hg 06/08/2025 Weight 187.8 lbs 06/08/2025 BMI 26.94 kg/m2 06/08/2025 Encounters Encounter Location Date Provider Diagnosis [facility] [address] [place], [place] 06/30/2024 TALAL FRAZIER [facility] [address] [place], [place] 07/06/2024 TALAL FRAZIER [facility] [address] [place], [place] 07/14/2024 TALAL FRAZIER [facility] [address] [place], [place] 07/22/2024 TALAL FRAZIER [facility] [address] [place], [place] 07/28/2024 TALAL FRAZIER [facility] [address] [place], [place] 08/04/2024 TALAL FRAZIER [facility] [address] [place], [place] 08/11/2024 TALAL FRAZIER [facility] [address] [place] 08/17/2024 TALAL FRAZIER [facility] [address] [place], [place] 08/24/2024 TALAL FRAZIER [facility] [address] [place], [place] 06/23/2024 KATHLEEN KASSANDRA Severe obesity (BMI >= 40) E66.01 ; BMI 40.0-44.9, adult Z68.41 and Elevated blood pressure reading R03.[address] [facility] [address] [place], [place] 07/23/2024 KATHLEEN KASSANDRA Obesity (BMI 30-39.9 ) E66.9 ; BMI 37.0-37.9, adult Z68.37 and Elevated blood pressure reading R03.[address] [facility] [address] [place], [place] 06/04/2025 KATHLEEN KASSANDRA BMI 26.0-26.9,adult Z68.26 ; Essential hypertension I10 ; Seasonal allergies J30.2 ; History of pneumonia Z87.01 ; Chronic insomnia F51.04 ; Risk for sexually transmitted disease Z72.51 and Encounter for examination of blood pressure with abnormal findings Z01.[address] [facility] [address] [place], [place] 06/08/2025 KATHLEEN KASSANDRA BMI 26.0-26.9,adult Z68.26 ; Pre-operative clearance Z01.818 ; Essential hypertension I10 ; Chronic insomnia F51.04 ; Encounter for screening for cardiovascular disorders Z13.6 ; 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 and Encounter for examination of blood pressure without abnormal findings Z01.30 [facility] [address] [place] [id number] 06/23/2024 KATHLEEN KASSANDRA [facility] [address] [place], [place] 07/28/2024 KATHLEEN KASSANDRA [facility] [address] [place] [address] 08/04/2024 KATHLEEN KASSANDRA [facility] [address] [place] [address] 08/04/2024 KATHLEEN KASSANDRA [facility] [address] [place] [address] 06/08/2025 KATHLEEN KASSANDRA [facility] [address] [place] [address] 06/08/2025 KATHLEEN KASSANDRA [facility] [address] [place] [address] 07/14/2024 KATHLEEN KASSANDRA [facility] [address] [place], [place] 07/27/2024 KATHLEEN KASSANDRA [facility] [address] 07/27/2024 KATHLEEN KASSANDRA [facility] [address] [address] 06/08/2025 KATHLEEN KASSANDRA Assessments Encounter Date Diagnosis (ICD Code) Assessment [...] Consider using apps like 7 minute excercise, [employer], lose it, stick as needed for self-monitoring and weight management. Consider group exercises. Consider hiring a personal property assessor. Regular exercise is lomeli to sustainable health [...] counseling and psychiatry and Dr Ledbetter at [facility]. We would like to cover regular topics [...] Dictation was accomplished with the use of Bio[employer]atch voice recognition software, prone to medical misidentifications [...] Dictation was accomplished with the use of [employer] voice recognition software, prone to medical misidentifications [...] Dictation was accomplished with the use of [employer]atch voice recognition software, prone to medical misidentifications [...] Consider using apps like 7 minute excercise, [employer], lose it, stick as needed for self-monitoring and weight management. Consider group exercises. Consider hiring a personal property assessor. Regular exercise is lomeli to sustainable health [...] counseling and psychiatry and Dr Ledbetter at [facility]. We would like to cover regular topics [...] Dictation was accomplished with the use of [employer] voice recognition software, prone to medical misidentifications [...] cosmetic abdominoplasty that will be performed in [place]. # Hypertension: Blood pressure elevated in office today 140/80. Patient monitors blood pressure at home and able to review log which reveals systolic blood pressure readings of 110-120s and diastolics 70-80s. Will continue to monitor. #Seasonal allergies: Well-controlled. Continue xysq-mif-kqxxwpn antihistamines as needed. #History of pneumonia: Over [...] scheduled for 06/08 for upcoming abdominoplasty in [place], [place]. Will order bloodwork today required for [...] Dictation was accomplished with the use of [employer] voice recognition software, prone to medical misidentifications [...] cosmetic abdominoplasty that will be performed in [place]. # Hypertension: Blood pressure elevated in office today 140/80. Patient monitors blood pressure at home and able to review log which reveals systolic blood pressure readings of 110-120s and diastolics 70-80s. Will continue to monitor. #Seasonal allergies: Well-controlled. Continue [id number]-vrgwpvg antihistamines as needed. #History of pneumonia: Over [...] scheduled for 06/08 for upcoming abdominoplasty in [place], [place]. Will order bloodwork today required for [...] Dictation was accomplished with the use of Bio[employer]atch voice recognition software, prone to medical misidentifications and grammatical errors. This is unintentional and the practitioner does try to identify and correct these, but some could still be present. Please do not hesitate to contact practitioner for clarification. 06/08/2025 BMI 26.0-26.9,adult (ICD-10 - Z68.26) This [...] risk index risk/Barone LILIAM *0.2% risk of [place], cardiac arrest or other cardiac events intraoperatively or up to 30 days postop [place] [facility] *1.1% 30 day risk of [place] or cardiac arrest Please do not hesitate to further contact me for information or questions Adi is a pleasant 50-year-old male present today for preop clearance. #Patient scheduled for belt lipectomy on 06/21/2025 at [facility] with Dr. Manuel Escudero. # Labs reviewed [...] Dictation was accomplished with the use of [employer] voice recognition software, prone to medical misidentifications [...] risk index risk/Barone LILIAM *0.2% risk of [place], cardiac arrest or other cardiac events intraoperatively or up to 30 days postop [place] [facility] *1.1% 30 day risk of [place] or cardiac arrest Please do not hesitate to further contact me for information or questions Adi is a pleasant 50-year-old male present today for preop clearance. #Patient scheduled for belt lipectomy on 06/21/2025 at [facility] with Dr. Manuel Escudero. # Labs reviewed [...] Dictation was accomplished with the use of [employer]atch voice recognition software, prone to medical misidentifications [...] cosmetic abdominoplasty that will be performed in [place]. # Hypertension: Blood pressure elevated in office today 140/80. Patient monitors blood pressure at home and able to review log which reveals systolic blood pressure readings of 110-120s and diastolics 70-80s. Will continue to monitor. #Seasonal allergies: Well-controlled. Continue nfcj-ibb-ockcdtx antihistamines as needed. #History of pneumonia: Over [...] scheduled for 06/08 for upcoming abdominoplasty in [place]. Will order bloodwork today required for [...] Dictation was accomplished with the use of BioCatch voice recognition software, prone to medical misidentifications [...] Consider using apps like 7 minute excercise, [employer], lose it, stick as needed for self-monitoring and weight management. Consider group exercises. Consider hiring a personal property assessor. Regular exercise is lomeli to sustainable health [...] counseling and psychiatry and Dr Ledbetter at [facility]. We would like to cover regular topics [...] Dictation was accomplished with the use of Bio[employer]atch voice recognition software, prone to medical misidentifications [...] Dictation was accomplished with the use of [employer]atch voice recognition software, prone to medical misidentifications [...] next visit it any questions/concerns arise. 06/08/2025 Essential hypertension (ICD-10 - I10) This [...] risk index risk/Barone LILIAM *0.2% risk of [place], cardiac arrest or other cardiac events intraoperatively or up to 30 days postop [place] [facility] *1.1% 30 day risk of [place] or cardiac arrest Please do not hesitate to further contact me for information or questions Adi is a pleasant 50-year-old male present today for preop clearance. #Patient scheduled for belt lipectomy on 06/21/2025 at [facility] with Dr. Manuel Escudero. # Labs reviewed [...] Dictation was accomplished with the use of BioCatch voice recognition software, prone to medical misidentifications [...] risk index risk/Barone LILIAM *0.2% risk of [place], cardiac arrest or other cardiac events intraoperatively or up to 30 days postop [place] RCI *1.1% 30 day risk of [place] or cardiac arrest Please do not hesitate to further contact me for information or questions Adi is a pleasant 50-year-old male present today for preop clearance. #Patient scheduled for belt lipectomy on 06/21/2025 at [facility] with Dr. Manuel Escudero. # Labs reviewed [...] Dictation was accomplished with the use of BioCatch voice recognition software, prone to medical misidentifications [...] cosmetic abdominoplasty that will be performed in [place]. # Hypertension: Blood pressure elevated in office today 140/80. Patient monitors blood pressure at home and able to review log which reveals systolic blood pressure readings of 110-120s and diastolics 70-80s. Will continue to monitor. #Seasonal allergies: Well-controlled. Continue ehfy-ixu-kqmwpsq antihistamines as needed. #History of pneumonia: Over [...] scheduled for 06/08 for upcoming abdominoplasty in [place]. Will order bloodwork today required for [...] Dictation was accomplished with the use of Bio[employer]atch voice recognition software, prone to medical misidentifications [...] cosmetic abdominoplasty that will be performed in [place]. # Hypertension: Blood pressure elevated in office today 140/80. Patient monitors blood pressure at home and able to review log which reveals systolic blood pressure readings of 110-120s and diastolics 70-80s. Will continue to monitor. #Seasonal allergies: Well-controlled. Continue edrf-zra-ezckmhz antihistamines as needed. #History of pneumonia: Over [...] scheduled for 06/08 for upcoming abdominoplasty in [place]. Will order bloodwork today required for [...] Dictation was accomplished with the use of Bio[employer]atch voice recognition software, prone to medical misidentifications [...] risk index risk/Barone LILIAM *0.2% risk of [place], cardiac arrest or other cardiac events intraoperatively or up to 30 days postop [place] [facility] *1.1% 30 day risk of [place] or cardiac arrest Please do not hesitate to further contact me for information or questions Adi is a pleasant 50-year-old male present today for preop clearance. #Patient scheduled for belt lipectomy on 06/21/2025 at [facility] with Dr. Manuel Escudero. # Labs reviewed [...] Dictation was accomplished with the use of Bio[employer]atch voice recognition software, prone to medical misidentifications [...] cosmetic abdominoplasty that will be performed in [place]. # Hypertension: Blood pressure elevated in office today 140/80. Patient monitors blood pressure at home and able to review log which reveals systolic blood pressure readings of 110-120s and diastolics 70-80s. Will continue to monitor. #Seasonal allergies: Well-controlled. Continue imqv-tnu-zbkvfnp antihistamines as needed. #History of pneumonia: Over [...] scheduled for 06/08 for upcoming abdominoplasty in [place]. Will order bloodwork today required for [...] Dictation was accomplished with the use of BioCatch voice recognition software, prone to medical misidentifications [...] risk index risk/Barone LILIAM *0.2% risk of [place], cardiac arrest or other cardiac events intraoperatively or up to 30 days postop [place] [facility] *1.1% 30 day risk of [place] or cardiac arrest Please do not hesitate to further contact me for information or questions Adi is a pleasant 50-year-old male present today for preop clearance. #Patient scheduled for belt lipectomy on 06/21/2025 at [facility] with Dr. Manuel Escudero. # Labs reviewed [...] Dictation was accomplished with the use of BioCatch voice recognition software, prone to medical misidentifications [...] risk index risk/Barone LILIAM *0.2% risk of [place], cardiac arrest or other cardiac events intraoperatively or up to 30 days postop [place] [facility] *1.1% 30 day risk of [place] or cardiac arrest Please do not hesitate to further contact me for information or questions Adi is a pleasant 50-year-old male present today for preop clearance. #Patient scheduled for belt lipectomy on 06/21/2025 at [facility] with Dr. Manuel Escudero. # Labs reviewed [...] Dictation was accomplished with the use of BioCatch voice recognition software, prone to medical misidentifications [...] cosmetic abdominoplasty that will be performed in [place]. # Hypertension: Blood pressure elevated in office today 140/80. Patient monitors blood pressure at home and able to review log which reveals systolic blood pressure readings of 110-120s and diastolics 70-80s. Will continue to monitor. #Seasonal allergies: Well-controlled. Continue tqnq-zvt-jlwwdks antihistamines as needed. #History of pneumonia: Over [...] scheduled for 06/08 for upcoming abdominoplasty in [place]. Will order bloodwork today required for [...] Dictation was accomplished with the use of BioCatch voice recognition software, prone to medical misidentifications [...] NITAL 06/04/2025 HSV 1 and 2 Ab, [id number] 06/04/2025 TSH+T3+Free T4+T3 Free 06/04/2025 Next Appt Details Provider Name:KATHLEEN CANNON, 07/16/2025 10:45:00 AM, [address], [place], [address], Insurance Providers Payer Name Payer Address Payer Phone Subscriber Number Group Number Insured Name Patient Relationship to Insured Coverage Start Date Coverage End Date Blue Benefits Admin [address] [address] [place] [address] [phone] [id number] Adi Mota Self - patient is the insured Medications [...]
== END 2025-06-10 09:07 | disposition home or self-care (01) ==
LOC: HO.HCS 08:16
PROVIDERS: Visit Provider Internal Medicine Cardiovascular Disease
DX: Z01.810 Encounter for preprocedural cardiovascular examination (principal); R94.31 Abnormal electrocardiogram [ECG] [EKG]
CPT/HCPCS: 93010; 99204

== ENCOUNTER → 2025-06-10 08:16 | Outpatient (BNVA) | payer OTHER, SELFPAY | PROVIDERS: Visit Provider Internal Medicine Cardiovascular Disease | DX: Z01.810 Encounter for preprocedural cardiovascular examination (principal); R94.31 Abnormal electrocardiogram [ECG] [EKG] | CPT/HCPCS: 93005 ==

== ENCOUNTER → 2025-06-17 10:53 | Outpatient (REF) | payer OTHER, SELFPAY ==
--- OUTSIDE RECORDS SUMMARY | 2024-09-09 04:15 | XMS_ITS ---
Author Organization [facility] [address] Address [address] [facility] [place] [address] Care Team Providers Care Floor Nurse Name Role Phone KATHLEEN CANNON Unavailable [phone] BETITO FRAZIER Unavailable [phone] REASON FOR VISIT 5mg Encounters Encounter Location Date Provider Diagnosis [facility] [address] [place] [address] 09/09/2024 BETITO FRAZIER Plan Of Treatment Next Appt Details Provider Name:KATHLEEN CANNON, 07/16/2025 10:45:00 AM, [address], [place], [address], Progress Notes * Adi MOTADOB:[birth year] (50 yo M)Acc No.[id number]:09/09/2024 Patient: Adi BROOKS Provider: Laurel Frazier MD :1975 A ge:49 Y S ex:Male Date:09/09/2024 Address:[address] [place] Subjective: * Chief Complaints: * 1 . 5mg. * Medical History: Objective: * Vitals: Assessment: Plan: * Treatment: * Images: Billing Information: * Visit Code: * Procedure Codes: * Electronic signature of KATI FRAZIER MD on 06/17/2025 at 02:55 PM EDT Sign off status: Pending * Provider: Laurel Frazier MD Date: 1 11/10/2023 Generated for Elina Nayakg/Siddharth on: 0 06/17/2025 02:55 PM EDT
--- OUTSIDE RECORDS SUMMARY | 2024-09-15 09:30 | XMS_ITS ---
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 Officer Name Role Phone KATHLEEN CANNON Unavailable [phone] Encounters Encounter Location Date Provider Diagnosis [facility] [address] [place] [address] 09/15/2024 KATHLEEN CANNON Plan Of Treatment Next Appt Details Provider Name:KATHLEEN CANNON, 07/16/2025 10:45:00 AM, [address], [place], [address], Progress Notes * Adi MOTADOB:[birth year] (50 yo M)Acc No.[id number]:09/15/2024 Patient: Adi BROOKS Provider: Chi CANNON PA-C :1975 A ge:49 Y S ex:Male Date:09/15/2024 Address:[address] [place] Subjective: * Chief Complaints: * * Medical History: Objective: * Vitals: Assessment: Plan: * Treatment: * Images: Billing Information: * Visit Code: * Procedure Codes: * Electronic signature of ANNA MARIE CANNON PA-C [id number] on 06/17/2025 at 02:54 PM EDT Sign off status: Pending * Provider: Chi CANNON PA-C Date: 1 11/16/2023 Generated for Elina ac/Faxing/eTransmitting on: 0 06/17/2025 02:54 PM EDT
--- NOTE | 2025-06-17 10:59 | CA_ITS ---
Transthoracic Echocardiogram Patient (Last, First, Middle): Adi Mota A Gender: Male Date of : 1975 Age: 50 Procedure Date: 06/17/2025 Procedure Type: Transthoracic Echocardiogram Location: OP Height: 180.34 cm Weight: 82.1 kg BSA: 2.02 m2 Heart Rate: bpm BP: 122 / 78 mmHg Sales Consultant: TO/RC Referring MD: Dio Pearl MD Carousel Operator: Dio Pearl MD Symptoms: R94.31 - Abnormal electrocardiogram [ECG] [EKG] Study Quality: Adequate ECG Rhythm: Sinus Conclusions: - Essentially normal study Findings Left Ventricle Normal left ventricular size, thickness, and systolic function. The visually estimated ejection fraction is between 55-60%. Spectral Doppler is indicative of a normal filling pattern. Right Ventricle Normal right ventricular cavity size and systolic function. Atria Both atria are normal in size. There is a mobile atrial septum noted. There is no evidence of interatrial shunt. Aortic Valve Normal aortic valve structure and function. There is no aortic valve stenosis. There is no aortic valve regurgitation. Mitral Valve Normal mitral valve structure and function. There is trace mitral valve regurgitation. There is no mitral valve stenosis. Pulmonic Valve The pulmonic valve is likely normal. Tricuspid Valve Normal tricuspid valve structure. There is trace tricuspid valve regurgitation. The right ventricular systolic pressure is normal. The right ventricular systolic pressure is 31 mmHg. Normal right atrial pressure. There is no evidence of pulmonary hypertension. Great Vessels All visible segments of the aorta are normal in size. The pulmonary artery was not well visualized. Venous The inferior vena cava is normal in size and collapses greater than 50% with inspiration. Pericardium/Pleural There is no evidence of pericardial effusion. Prior Study Comparison No prior study available for comparison. Measurements 2D Linear Measurements IVSd: 0.80 0.6-0.9/0.6-1.0 cm LVIDd: 4.88 3.9-5.3/4.2-5.9 cm LVIDd Index: 2.42 2.4-3.2/2.2-3.1 cm/m2 LVIDs: 3.39 2.0-3.6 cm LVPWd: 0.77 0.7-1.1 cm LA Diam: 3.50 2.7-3.8/3.0-4.0 cm LAIDs Index: 1.73 1.5-2.3 cm/m2 LV Mass: 158.21 67-162/88-224 g LV Mass Index: 78.32 43-95/49-115 g/m2 LVOT Diam: 2.10 3.0+(-)1.3 cm 2D Systolic Function EF 4C: 55.20 >55% EF 2C: 61.10 >55% EF BiP: 55.90 >55% Mitral Valve MV Pk E: 0.71 MV PK A: 0.61 MV Decel Time: 197.00 E/A: 1.20 E'Lateral: 14.30 E'Medial: 9.46 E/E' Med: 7.50 E/E' Lat: 5.00 PHT: 58.00 MVA PHT: 3.79 Decel [place]: 3.61 Aortic Valve AoV Pk Tung: 1.39 AoV Mn Tung: 1.00 AoV VTI: 0.25 AoV Pk Grad: 8.00 Aov Mn Grad: 4.00 JHONNY Cont.VTI: 3.01 LVOT LVOT Pk Tung: 1.18 LVOT Mn Tung: 0.79 LVOT VTI: 0.22 LVOT Pk Grad: 6.00 LVOT Mn Grad: 3.00 LVOT Diam: 2.10 LVOT Area: 3.46 Diastolic Function MV Pk E: 0.71 MV Pk A: 0.61 E/A: 1.20 E'Medial: 9.46 E/E' Med: 7.50 E' Laterial: 14.30 E/E' Lat: 5.00 Right Ventricle TAPSE (mm): 26.40 TVS' Tung: 13.80 Tricuspid Valve TR Pk Tung: 2.42 TR Pk Grad: 23.00 RA Press: 8.00 RVSP: 31.00 Great Vessels Aorta Sinus of Valsalva: 3.21 2.0-3.5 cm Updated in Other Vendor System with Status of Final Dio Pearl MD electronically signed on 06/18/2025 1:28:01 PM with status of Final
--- OUTSIDE RECORDS SUMMARY | 2025-06-17 14:55 | XMS_ITS | Patient Health Record ---
Author Organization [facility] Address [address] [place] [address] Care Team Providers Care Dollyman Name Role Phone KATHLEEN CANNON Unavailable [phone] DARNELL FRAZIER Unavailable [phone] Allergies Allergen (clinical drug ingredient) Drug/Non Drug [...] 2 Abnormal EKG (R94.31 ) Referral Organization [facility] Referring Provider First Name KATHLEEN Referring Provider Last Name KASSANDRA Referring Provider Speciality Internal M edicine Referred Provider Specialty Cardiology General Notes Isha Martinez 11:47:34 AM > referral sent to [facility] per pts request. f) [phone] p) [phone] Referral Priority Routine Medications Medication SIG (Take, [...] Status Risk Notes Problem Abnormal blood pressure (83943192) Encounter for examination of blood pressure with abnormal findings (Z01.31) Active confirmed Problem Essential hypertension (73819435) Essential hypertension (I10) Active confirmed Problem Seasonal allergy (315382217) Seasonal allergies (J30.2) Active confirmed Problem Vitamin D deficiency (41211653) Vitamin D deficiency (E55.9) Active confirmed Problem Body mass index 40+ - morbidly obese (851374111) BMI 40.0-44.9, adult (Z68.41) Active confirmed Problem Obesity (326207838) Obesity (BMI 30-39.9) (E66.9) Active confirmed Problem Obese class II (713666394414097 ) BMI 37.0-37.9, adult (Z68.37) Active confirmed Problem Morbid obesity (681037393) Severe obesity (BMI >= 40) (E66.01) Active confirmed Problem Acute anteroseptal myocardial infarction (62677941) Acute anteroseptal myocardial infarction (I21.09) Active confirmed Problem Chronic insomnia (471528607) Chronic insomnia (F51.04) Active confirmed Vital Signs Heart Rate 81 /min 06/08/2025 Blood pressure diastolic 78 mm Hg 06/08/2025 Oximetry 99 % 06/08/2025 Height 70 in 06/08/2025 Blood pressure systolic 114 mm Hg 06/08/2025 Weight 187.8 lbs 06/08/2025 BMI 26.94 kg/m2 06/08/2025 Encounters Encounter Location Date Provider Diagnosis [facility] [address] [place], [place] 06/30/2024 TALAL FRAZIER [facility] [address] [place], [place] 07/06/2024 TALAL FRAZIER [facility] [address] [place], [place] 07/14/2024 TALAL FRAZIER [facility] [address] [place], [place] 07/22/2024 TALAL FRAZIER [facility] [address] [place], [place] 07/28/2024 TALAL FRAZIER [facility] [address] [place], [place] 08/04/2024 TALAL FRAZIER [facility] [address], [place] 08/11/2024 TALAL FRAZIER [facility] [address] [place], [place] 08/17/2024 TALAL FRAZIER [facility] [address] [place], [place] 08/24/2024 TALAL FRAZIER [facility] [address] [place], [place] 06/23/2024 KATHLEEN KASSANDRA Severe obesity (BMI >= 40) E66.01 ; BMI 40.0-44.9, adult Z68.41 and Elevated blood pressure reading R03.[address] [facility] [address], [place] 07/23/2024 KATHLEEN KASSANDRA Obesity (BMI 30-39.9 ) E66.9 ; BMI 37.0-37.9, adult Z68.37 and Elevated blood pressure reading R03.[address] [facility] [address], [place] 06/04/2025 KATHLEEN KASSANDRA BMI 26.0-26.9,adult Z68.26 ; Essential hypertension I10 ; Seasonal allergies J30.2 ; History of pneumonia Z87.01 ; Chronic insomnia F51.04 ; Risk for sexually transmitted disease Z72.51 and Encounter for examination of blood pressure with abnormal findings Z01.[address] [facility] [address], [place] 06/08/2025 KATHLEEN KASSANDRA BMI 26.0-26.9,adult Z68.26 ; Pre-operative clearance Z01.818 ; Essential hypertension I10 ; Chronic insomnia F51.04 ; Encounter for screening for cardiovascular disorders Z13.6 ; 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 and Encounter for examination of blood pressure without abnormal findings Z01.30 [facility] [address] [place] [phone] 06/23/2024 KATHLEEN KASSANDRA [facility] [address], [place] 07/28/2024 KATHLEEN KASSANDRA [facility] [address] [place] [address] 08/04/2024 KATHLEEN KASSANDRA [facility] [address] [place] [address] 08/04/2024 KATHLEEN KASSANDRA [facility] [address] [place] [address] 06/08/2025 KATHLEEN KASSANDRA [facility] [address] [place] [address] 07/14/2024 KATHLEEN KASSANDRA [facility] [address] [place] [address] 07/27/2024 KATHLEEN KASSANDRA [facility] [address] [place], [place] 07/27/2024 KATHLEEN KASSANDRA [facility] [address] [place] [address] 06/08/2025 KATHLEEN KASSANDRA [facility] [address] [place] [address] 06/08/2025 KATHLEEN KASSANDRA [facility] [address] [place] [address] 06/11/2025 KATHLEEN KASSANDRA Assessments Encounter Date Diagnosis (ICD Code) Assessment Notes Treatment Notes Treatment Clinical Notes Section Notes 06/23/2024 Severe obesity (BMI >= 40) (ICD-10 - E66.01) # Morbid obesity: 06/23/24: Wt: 281.6 lbs, BMI: 40.4 Discussed need for lifestyle modifications including weight loss medication. Discussed diet of 2200 ikmo focusing on high-protein and eliminating processed foods, [...] Consider using apps like 7 minute excercise, myDroidUnit.netnesspal, lose it, stick as needed for self-monitoring and weight management. Consider group exercises. Consider hiring a personal consultant. Regular exercise is lomeli to sustainable health [...] counseling and psychiatry and Dr Ledbetter at [facility]. We would like to cover regular topics [...] Dictation was accomplished with the use of eGood voice recognition software, prone to medical misidentifications [...] Dictation was accomplished with the use of eGood voice recognition software, prone to medical misidentifications [...] Dictation was accomplished with the use of eGood voice recognition software, prone to medical misidentifications [...] Consider using apps like 7 minute excercise, myNumerifypal, lose it, stick as needed for self-monitoring and weight management. Consider group exercises. Consider hiring a personal consultant. Regular exercise is lomeli to sustainable health [...] counseling and psychiatry and Dr Ledbetter at [facility]. We would like to cover regular topics [...] Dictation was accomplished with the use of eGood voice recognition software, prone to medical misidentifications [...] cosmetic abdominoplasty that will be performed in [place]. # Hypertension: Blood pressure elevated in office today 140/80. Patient monitors blood pressure at home and able to review log which reveals systolic blood pressure readings of 110-120s and diastolics 70-80s. Will continue to monitor. #Seasonal allergies: Well-controlled. Continue xnuy-fmn-gypidst antihistamines as needed. #History of pneumonia: Over [...] scheduled for 06/08 for upcoming abdominoplasty in [place]. Will order bloodwork today required for [...] Dictation was accomplished with the use of eGood voice recognition software, prone to medical misidentifications [...] cosmetic abdominoplasty that will be performed in [place]. # Hypertension: Blood pressure elevated in office today 140/80. Patient monitors blood pressure at home and able to review log which reveals systolic blood pressure readings of 110-120s and diastolics 70-80s. Will continue to monitor. #Seasonal allergies: Well-controlled. Continue xloh-hsn-yogtkmf antihistamines as needed. #History of pneumonia: Over [...] scheduled for 06/08 for upcoming abdominoplasty in [place]. Will order bloodwork today required for [...] Dictation was accomplished with the use of eGood voice recognition software, prone to medical misidentifications [...] help you in the management of this patient. Patient cleared for surgery from both a primary care and cardiology stand point. Preoperative cardiac risk index risk/Barone LILIAM *0.2% risk of CA, cardiac arrest or other cardiac events intraoperatively or up to 30 days postop [place] [facility] *1.1% 30 day risk of CA or cardiac arrest Please do not hesitate to further contact me for information or questions Adi is a pleasant 50-year-old male present today for preop clearance. #Patient scheduled for belt lipectomy on 06/21/2025 at [facility] with Dr. Manuel Escudero. # Labs reviewed and unremarkable. Will fax. # Chest xray required: performed and unremarkable. # Abnormal EKG: performed revealing normal sinus rhythm however old anteroseptal infarct. This EKG was repeated 3 times. Patient denies any current or past history of chest pain, shortness of breath, palpitations, vision changes, fatigue, weakness or syncope. No previous EKG for comparison. Will refer to cardiology for further eval. Cleared from cardiology standpoint. Recommended a echocardigram in the future for further eval. # Elevated BMI: Has lost significant weight [...] Dictation was accomplished with the use of eGood voice recognition software, prone to medical misidentifications [...] help you in the management of this patient. Patient cleared for surgery from both a primary care and cardiology stand point. Preoperative cardiac risk index risk/Barone LILIAM *0.2% risk of CA, cardiac arrest or other cardiac events intraoperatively or up to 30 days postop [facility] *1.1% 30 day risk of CA or cardiac arrest Please do not hesitate to further contact me for information or questions Adi is a pleasant 50-year-old male present today for preop clearance. #Patient scheduled for belt lipectomy on 06/21/2025 at [facility] with Dr. Manuel Escudero. # Labs reviewed and unremarkable. Will fax. # Chest xray required: performed and unremarkable. # Abnormal EKG: performed revealing normal sinus rhythm however old anteroseptal infarct. This EKG was repeated 3 times. Patient denies any current or past history of chest pain, shortness of breath, palpitations, vision changes, fatigue, weakness or syncope. No previous EKG for comparison. Will refer to cardiology for further eval. Cleared from cardiology standpoint. Recommended a echocardigram in the future for further eval. # Elevated BMI: Has lost significant weight [...] arise. Case discussed with collaborating physician Dr. rFazier who reviewed the assessment and plan. Chart, medications, labs, vital signs reviewed. Dictation was accomplished with the use of eGood voice recognition software, prone to medical misidentifications [...] cosmetic abdominoplasty that will be performed in [place]. # Hypertension: Blood pressure elevated in office today 140/80. Patient monitors blood pressure at home and able to review log which reveals systolic blood pressure readings of 110-120s and diastolics 70-80s. Will continue to monitor. #Seasonal allergies: Well-controlled. Continue bcgd-juc-ytuigma antihistamines as needed. #History of pneumonia: Over [...] scheduled for 06/08 for upcoming abdominoplasty in [place]. Will order bloodwork today required for [...] Dictation was accomplished with the use of eGood voice recognition software, prone to medical misidentifications [...] Consider group exercises. Consider hiring a personal consultant. Regular exercise is lomeli to sustainable health [...] counseling and psychiatry and Dr Ledbetter at [facility]. We would like to cover regular topics [...] Dictation was accomplished with the use of eGood voice recognition software, prone to medical misidentifications [...] Dictation was accomplished with the use of eGood voice recognition software, prone to medical misidentifications [...] help you in the management of this patient. Patient cleared for surgery from both a primary care and cardiology stand point. Preoperative cardiac risk index risk/Barone LILIAM *0.2% risk of CA, cardiac arrest or other cardiac events intraoperatively or up to 30 days postop [facility] *1.1% 30 day risk of CA or cardiac arrest Please do not hesitate to further contact me for information or questions Adi is a pleasant 50-year-old male present today for preop clearance. #Patient scheduled for belt lipectomy on 06/21/2025 at [facility] with Dr. Manuel Escudero. # Labs reviewed and unremarkable. Will fax. # Chest xray required: performed and unremarkable. # Abnormal EKG: performed revealing normal sinus rhythm however old anteroseptal infarct. This EKG was repeated 3 times. Patient denies any current or past history of chest pain, shortness of breath, palpitations, vision changes, fatigue, weakness or syncope. No previous EKG for comparison. Will refer to cardiology for further eval. Cleared from cardiology standpoint. Recommended a echocardigram in the future for further eval. # Elevated BMI: Has lost significant weight [...] Dictation was accomplished with the use of eGood voice recognition software, prone to medical misidentifications [...] help you in the management of this patient. Patient cleared for surgery from both a primary care and cardiology stand point. Preoperative cardiac risk index risk/Barone LILIAM *0.2% risk of CA, cardiac arrest or other cardiac events intraoperatively or up to 30 days postop [facility] *1.1% 30 day risk of CA or cardiac arrest Please do not hesitate to further contact me for information or questions Adi is a pleasant 50-year-old male present today for preop clearance. #Patient scheduled for belt lipectomy on 06/21/2025 at [facility] with Dr. Manuel Escudero. # Labs reviewed and unremarkable. Will fax. # Chest xray required: performed and unremarkable. # Abnormal EKG: performed revealing normal sinus rhythm however old anteroseptal infarct. This EKG was repeated 3 times. Patient denies any current or past history of chest pain, shortness of breath, palpitations, vision changes, fatigue, weakness or syncope. No previous EKG for comparison. Will refer to cardiology for further eval. Cleared from cardiology standpoint. Recommended a echocardigram in the future for further eval. # Elevated BMI: Has lost significant weight [...] Dictation was accomplished with the use of eGood voice recognition software, prone to medical misidentifications [...] cosmetic abdominoplasty that will be performed in [place]. # Hypertension: Blood pressure elevated in office today 140/80. Patient monitors blood pressure at home and able to review log which reveals systolic blood pressure readings of 110-120s and diastolics 70-80s. Will continue to monitor. #Seasonal allergies: Well-controlled. Continue ftaf-xzu-thzokrr antihistamines as needed. #History of pneumonia: Over [...] scheduled for 06/08 for upcoming abdominoplasty in [place]. Will order bloodwork today required for [...] Dictation was accomplished with the use of eGood voice recognition software, prone to medical misidentifications [...] cosmetic abdominoplasty that will be performed in [place]. # Hypertension: Blood pressure elevated in office today 140/80. Patient monitors blood pressure at home and able to review log which reveals systolic blood pressure readings of 110-120s and diastolics 70-80s. Will continue to monitor. #Seasonal allergies: Well-controlled. Continue yvvf-uew-rqssmgt antihistamines as needed. #History of pneumonia: Over [...] scheduled for 06/08 for upcoming abdominoplasty in [place]. Will order bloodwork today required for [...] Dictation was accomplished with the use of eGood voice recognition software, prone to medical misidentifications [...] help you in the management of this patient. Patient cleared for surgery from both a primary care and cardiology stand point. Preoperative cardiac risk index risk/Barone LILIAM *0.2% risk of CA, cardiac arrest or other cardiac events intraoperatively or up to 30 days postop [facility] *1.1% 30 day risk of CA or cardiac arrest Please do not hesitate to further contact me for information or questions Adi is a pleasant 50-year-old male present today for preop clearance. #Patient scheduled for belt lipectomy on 06/21/2025 at [facility] with Dr. Manuel Escudero. # Labs reviewed and unremarkable. Will fax. # Chest xray required: performed and unremarkable. # Abnormal EKG: performed revealing normal sinus rhythm however old anteroseptal infarct. This EKG was repeated 3 times. Patient denies any current or past history of chest pain, shortness of breath, palpitations, vision changes, fatigue, weakness or syncope. No previous EKG for comparison. Will refer to cardiology for further eval. Cleared from cardiology standpoint. Recommended a echocardigram in the future for further eval. # Elevated BMI: Has lost significant weight [...] Dictation was accomplished with the use of eGood voice recognition software, prone to medical misidentifications [...] cosmetic abdominoplasty that will be performed in [place]. # Hypertension: Blood pressure elevated in office today 140/80. Patient monitors blood pressure at home and able to review log which reveals systolic blood pressure readings of 110-120s and diastolics 70-80s. Will continue to monitor. #Seasonal allergies: Well-controlled. Continue dqlv-ddh-szoqujd antihistamines as needed. #History of pneumonia: Over [...] scheduled for 06/08 for upcoming abdominoplasty in [place] Will order bloodwork today required for [...] Dictation was accomplished with the use of eGood voice recognition software, prone to medical misidentifications [...] help you in the management of this patient. Patient cleared for surgery from both a primary care and cardiology stand point. Preoperative cardiac risk index risk/Barone LILIAM *0.2% risk of CA, cardiac arrest or other cardiac events intraoperatively or up to 30 days postop [facility] *1.1% 30 day risk of CA or cardiac arrest Please do not hesitate to further contact me for information or questions Adi is a pleasant 50-year-old male present today for preop clearance. #Patient scheduled for belt lipectomy on 06/21/2025 at [facility] with Dr. Manuel Escudero. # Labs reviewed and unremarkable. Will fax. # Chest xray required: performed and unremarkable. # Abnormal EKG: performed revealing normal sinus rhythm however old anteroseptal infarct. This EKG was repeated 3 times. Patient denies any current or past history of chest pain, shortness of breath, palpitations, vision changes, fatigue, weakness or syncope. No previous EKG for comparison. Will refer to cardiology for further eval. Cleared from cardiology standpoint. Recommended a echocardigram in the future for further eval. # Elevated BMI: Has lost significant weight [...] Dictation was accomplished with the use of eGood voice recognition software, prone to medical misidentifications [...] help you in the management of this patient. Patient cleared for surgery from both a primary care and cardiology stand point. Preoperative cardiac risk index risk/Barone LILIAM *0.2% risk of CA, cardiac arrest or other cardiac events intraoperatively or up to 30 days postop [place] [facility] *1.1% 30 day risk of CA or cardiac arrest Please do not hesitate to further contact me for information or questions Adi is a pleasant 50-year-old male present today for preop clearance. #Patient scheduled for belt lipectomy on 06/21/2025 at [facility] with Dr. Manuel Escudero. # Labs reviewed and unremarkable. Will fax. # Chest xray required: performed and unremarkable. # Abnormal EKG: performed revealing normal sinus rhythm however old anteroseptal infarct. This EKG was repeated 3 times. Patient denies any current or past history of chest pain, shortness of breath, palpitations, vision changes, fatigue, weakness or syncope. No previous EKG for comparison. Will refer to cardiology for further eval. Cleared from cardiology standpoint. Recommended a echocardigram in the future for further eval. # Elevated BMI: Has lost significant weight [...] Dictation was accomplished with the use of eGood voice recognition software, prone to medical misidentifications [...] cosmetic abdominoplasty that will be performed in [place]. # Hypertension: Blood pressure elevated in office today 140/80. Patient monitors blood pressure at home and able to review log which reveals systolic blood pressure readings of 110-120s and diastolics 70-80s. Will continue to monitor. #Seasonal allergies: Well-controlled. Continue mhpt-rns-okytdqx antihistamines as needed. #History of pneumonia: Over [...] scheduled for 06/08 for upcoming abdominoplasty in [place]. Will order bloodwork today required for [...] Dictation was accomplished with the use of eGood voice recognition software, prone to medical misidentifications [...] NITAL 06/04/2025 HSV 1 and 2 Ab, [id number] 06/04/2025 TSH+T3+Free T4+T3 Free 06/04/2025 Next Appt Details Provider Name:KATHLEEN CANNON, 07/16/2025 10:45:00 AM, [address], [place], [address], Insurance Providers Payer Name Payer Address Payer Phone Subscriber Number Group Number Insured Name Patient Relationship to Insured Coverage Start Date Coverage End Date [employer] Benefits Admin [address] [address] [place] [address] [id number] Adi Mota Self - patient is the [...]
--- OUTSIDE RECORDS SUMMARY | 2025-06-17 14:55 | XMS_ITS | Clinical Summary ---
Author Organization [facility] Address [address] [place] [id number] Phone Care Team Providers Care Cna Gna Name Role Phone Unavailable Primary Care Provider Unavailabl e Allergies Active Allergy Reactions Criticality Noted Date [...] Type Department Care Team Description 05/24/2025 Refill [facility] [address] [place] [address] Radha Call MD, MPH Medication Refill from [...] high school, GED, job training, learning the [place] language, technical skills, or developing parenting skills)? [...] FOBT 2020 SIGMOIDOSCOPY 2020 VIRTUAL COLONOSCOPY 2020 REPEAT PHQ 07/19/2024 06/19/2024, 06/19/2024 ZOSTER VACCINES (1 of 2) 2025 INFLUENZA VACCINE (#1) 2025 , 07/23/2019, 07/18/2018, Additional history exists COVID-19 VACCINE (3 - 2024- season) 2025 11/15/2020, 10/21/2020 DEPRESSION SCREENING 06/19/2025 06/19/2024, 06/19/20 24 SCREENING [...] antibody, qualitative (07/17/2024 8:56 AM EDT) Blood us Radha Call MD, MPH LAB BLOOD ORDERABLES Final Result EXTERNAL NON-INTERFACED REF LAB * Outside Glucose,Fasting (07/17/2024) Glucose, fasting - External 88 65 - 99 mg/dL Historical Provider MD LAB BLOOD ORDERABLES Elvira l Result * OUTSIDE HIV TEST (07/17/2024) HIV - External Neg [facility] Provider MD LAB BLOOD ORDERABLES Elvira l Result * (ABNORMAL) Outside HDL (07/17/2024) HDL - External 34(A) 40 - 80 mg/dL [facility] Provider MD LAB BLOOD ORDERABLES Elvira l Result from Last 3 Months or Most Recently Relevant to Health Maintenance Insurance [employer] [place] [id number] [employer] [place] [id number] [employer] Additional Source Comments The information contained in this document represents components of the legal health record. It is not the complete legal health record.[facility]
--- OUTSIDE RECORDS SUMMARY | 2025-06-17 14:55 | XMS_ITS | Encounter Summary ---
Author Organization [facility] Address [address] [place] [address] Phone Care Team Providers Care Risk Control Officer Name Role Phone Radha Call MD, MPH Primary Care Provid er Reason for Visit * Reason Comments Medication Refill Encounter Details Date Type Department Care Team (Late st Contact Info) Description 05/24/2025 Refill [facility] [address] [place] [address] Radha Call MD, MPH [address] [place], [place] [id number] [email or web address] Medication Refill Social History Tobacco Use Types [...] high school, GED, job training, learning the [place] language, technical skills, or developing parenting skills)? [...] as of this encounter Progress Notes * Donita Briscoe - 06/09/2025 2:36 PM EDT Changed providers * Shelbie Fair RN - 05/24/2025 11:01 [...] documented as of this encounter Care Teams Risk Control Officer Relationship Specialty Start Date End Date Radha Call MD, MPH [address] [place] [address] [email or web address] PCP - General Family Medicine 10/30/19 06/08/25 documented as of this encounter Additional Source Comments The information contained in this document represents components of the legal health record. It is not the complete legal health record.[facility]
== END ==
LOC: HO.CARD 10:53
PROVIDERS: Visit Provider Internal Medicine Cardiovascular Disease
DX: Z01.810 Encounter for preprocedural cardiovascular examination (principal); R94.31 Abnormal electrocardiogram [ECG] [EKG]
CPT/HCPCS: 93306

== ENCOUNTER → 2025-06-17 10:59 | Outpatient (BNV) | payer OTHER, SELFPAY | PROVIDERS: Visit Provider Internal Medicine Cardiovascular Disease | DX: R94.31 Abnormal electrocardiogram [ECG] [EKG] (principal) | CPT/HCPCS: 93306 ==